=== PATIENT | male | born 1950 | race Caucasian/White ===

== ENCOUNTER 2021-09-13 15:25 | Outpatient (REF) | payer MEDICARE, SELFPAY ==
--- NOTE | ~2021-09-13 | XR_ITS ---
EXAMINATION: XR HIP, RIGHT CLINICAL INFORMATION: Pain COMPARISON: No prior studies available for comparison. TECHNIQUE: Two views of the right hip. FINDINGS: There is a radiolucent lesion in the right femoral neck measured approximately 4.4 cm, the lesion has nonaggressive features including well-defined sclerotic borders, central intramedullary, narrow zone of transition, similar lesion found in the proximal diaphysis measure 3.5 x 2.4 cm, adjacent heterogeneity of the cortex between the 2 lesions could be asymmetric bone demineralization, however cannot entirely rule out the possibility of pathologic process. There is also sclerotic lesion 1.3 cm. There are degenerative osteoarthritic changes of the hip joint. There is a 3 cm ossified structure protruding from the iliac bone could be osteochondroma. XR/XR hip RT min 2V IMPRESSION: Multiple bone lesions found in the right iliac bone, right femoral neck and proximal diaphysis as described above most of which has nonaggressive features, however there are indistinct radiolucency between the 2 femoral lesions are somewhat concerning, would recommend correlation with follow-up contrast enhanced MRI to rule out underlying more aggressive pathologic features. (Referring physician staff is being called, to be alerted of the above findings and recommendations.) SM
== END 2021-09-13 15:26 | disposition home or self-care (01) ==
LOC: HO.XRAY 15:25
PROVIDERS: PCP Family Medicine; Visit Provider Family Medicine
DX: M25.551 Pain in right hip (principal)
CPT/HCPCS: 73502

== ENCOUNTER 2021-09-22 15:52 | Outpatient (REF) | payer MEDICARE, SELFPAY ==
--- NOTE | ~2021-09-22 | MR_ITS ---
EXAMINATION: MR HIP WITHOUT AND WITH CONTRAST, RIGHT CLINICAL INFORMATION: 71-year-old male with remote history of prior hip surgery. Worsening right hip pain. COMPARISON: Radiographs of the hip from 09/13/2021. TECHNIQUE: MR imaging of the right hip was performed on a high-field 1.5 Nurys magnet using standard sequences without and with intravenous administration of 9 mL Gadavist. FINDINGS: There is thinning of articular cartilage of the superior femoral head and acetabulum. The signal heterogeneity within degenerated articular cartilage is most pronounced at the superolateral aspect of the acetabulum, and there is mild subchondral cystic change of the acetabulum. There are marginal osteophytes at the degenerated femoroacetabular joint. There is a tear in the base of the anterior acetabular labrum (sagittal images 9-10, series 5). Also, there is signal alteration of mucoid degeneration with partial thickness tear in the labrum at the superolateral acetabulum. Small paralabral cyst of the posterior superior acetabulum measures up to 0.7 cm maximum dimension (image 7, series 6; image 18, series 7). The ligamentum teres femoris is intact. There is subcortical cystic change of the medial femoral head in the region of the fovea capitis. There is somewhat horizontal orientation of predominantly sclerotic, hypointense signal abnormality in the lower intertrochanteric area of the proximal femur. This appears to represent an old healed osteotomy. Well-circumscribed foci of mixed signal intensity with sclerotic borders are present proximal and distal to this area of prior osteotomy. These have the appearance of chronic fibrocystic changes within the medullary cavity and they do not significantly enhance after contrast administration. These appear to represent chronic, benign lesions. Note that there are no remote comparison imaging exams. 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 No acute avulsion fracture. The iliopsoas has a normal insertion on the lesser trochanter. The gluteus minimus and medius tendons have intact insertions on the greater trochanter. No evidence of trochanteric bursitis. The visualized proximal hamstring tendons are intact. The degenerated lumbar spine is partially included in the [id number]. Sacrum and sacroiliac joints are unremarkable. The fat planes are maintained along the visualized course of each proximal sciatic nerve. No evidence of pelvic soft tissue mass, lymphadenopathy or free fluid. The urinary bladder and prostate gland are unremarkable. MR/MR hip RT wo/w con IMPRESSION: * Moderate osteoarthritis of the right hip. * The labrum of the right hip is degenerated and torn, and there is a small paralabral cyst of the posterosuperior acetabulum. * Findings consistent with old healed osteotomy of the proximal right femur, and there appear to be old fibrocystic changes within the medullary cavity the proximal femur. No suspicious bone lesion. 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 No acute avulsion fractures.
--- NOTE | ~2021-09-22 | XR_ITS ---
EXAMINATION: PRE-MRI ORBITS CLINICAL INFORMATION: Metal 20-30 years ago in orbits COMPARISON: None TECHNIQUE: 3 views of the orbits FINDINGS: No metallic foreign body. The orbits are normal no acute facial bone abnormality. Normal aeration of paranasal sinuses. XR/XR pre mri screening IMPRESSION: No radiopaque foreign body of orbits.
[2021-09-22 16:28] LABS: Anion Gap 16 (12-20); Blood Urea Nitrogen 17 mg/dL (9-16); Calcium 9.9 mg/dL (8.4-10.2); Carbon Dioxide 28 mmol/L (22-29); Chloride 98 mmol/L (96-108); Estimated Glomerular Filt Rate > 60; Glucose Random 98 mg/dL (60-115); Potassium 3.5 mmol/L (3.3-5.1); Sodium 138 mmol/L (135-145)
== END 2021-09-22 15:53 | disposition home or self-care (01) ==
LOC: HO.MRI 15:52
PROVIDERS: Visit Provider Family Medicine
DX: I10 Essential (primary) hypertension (principal); M25.551 Pain in right hip
CPT/HCPCS: 36415; 73723; 80048; A9585

== ENCOUNTER 2023-07-17 10:00 | Outpatient (RCR) | payer OTHER, SELFPAY ==
[2023-04-25 10:04] VITALS: BP 144/80; BP 152/80; BP 160/80; BMI 28.5
--- NOTE | 2023-04-25 11:12 | MHC.CR.ITI ---
[address] [phone] F: [phone] Please see additional notes from [address] [phone] F: [phone] Please see additional notes from [facility] Cardiac Rehab Initial Assessment/ITP Cardiac Rehab Initial Assessment/ITP Start: 04/23/23 14:33 Freq: Status: Active Protocol: Activity Type Activity Date Activity User E-sign Co-sign Detail Recorded Client Recorded Date Recorded By Document 04/25/23 10:04 ANIL [id number] 04/23/23 14:57 ANIL 04/25/23 10:04 Cardiac Rehab ITP Initial [Excercise] -Transfer Man Required No -Preferred Language Nepali -Number of sessions approved 36 -Diagnosis Coronary Stenting (PCI) Z98.61 -Other Diagnosis HTN, HYperlipidemia -Comments PMH of CAD S/P PCI to LAD. Admitted 01/19 with unstable Angina and had NOA to mid and proximal RCA. No cardiac symptoms at Cardiology follow up . ECHO showed normal LV funsction.. He is monitoring BP at home. [Functional Assessment] -METS Achieved 3.54 -Resting HR 78 -Resting BP 152/80 -Resting SpO2 97 -Exercise HR 102 -Exercise BP 144/80 -Exercise SpO2 96 -RPE 12 -Dyspnea No -ECG Summary SR -Comments No CP, SOB [Pre Rehab] -Pre Rehab Home Exercise Yes -Mode Walk -Exercise Minutes/Day Varies -Exercise Days/Week 7 -Intensity Low -Comments Has been walking 3-4 miles a day per MD note and cares for disabled spouse . He expresses he has not been walking as much due to fatigue after COVID, Stent and recent PCI. Has limited left arm ROM. Has a lot of physical activity due to care he provides for . -Risk Stratification: Low Risk Uncomplicated Participants DC; CABG; angioplasty; atherectomy,No significant left ventricular dysfunction (EF > = 30%) -Assistive Devices None -Comments Low Risk-No CV symptoms post stent [Exercise Plan] [Intervention] -Exercise Prescription NuStep, Recumbent Bike, Recumbent Elliptical, Treadmill,UBE, Upright Bike, Weights -Duration Intensity 36 Sessions -Frequency 2-3x/week -Angina with Exercise No [Exercise Education] -Exercise Education Exercise orientation, Exercise safety ,Home exercise, RPE,Self pulse checking,Signs and symptoms, Warmup/cooldown -Date Completed 04/25/23 -Initials CD -Education Summary The above were discussed by RN and Reinforced by Character Impersonator [Exercise Goals] -Exercise Most Days of the Week Yes -Exercise 30-45 mins/day Yes -Target HR Range +20 - +30 beats above resting -Target RPE range 11-13 -Increase METS next 30 days 0.5-1.0 METS Every two weeks -METs goal by Discharge 4 METS -Comments Walks 3-4 miles at home previously(per February, MD note). Wishes to increase exercise tolerance, and have understanding of safe exercise guidelines. Has not done as much walking due to caregiver fatigue [Nutrition] [Hyperlipidemia] -Hyperlipidemia Yes -Are lab results available Yes -Lipid Draw Date 02/19/23 -Total Cholesterol 265 -LDL 96 -HDL 45 -Tryglycerides 621 [Diabetes] -Diabetes No -Are lab results available Yes -Fasting Glucose 107 -Date 01/19/23 -HbA1C 5.50 -Monitors Glucose No [Weight Management] -Height 5 ft 10.08 in -Weight 90.5 kg -BMI 28.54 -Recommended Diet Low Fat,Salt -Comments Lipids discussed; he will discuss with MD. [Drug/Alchohol Use] -Drug/Alcohol Use Yes -Type Beer/Wine -Amount 1-2 per week [Nutritional Screen (Rate Your Plate)] -Score 52 -Interpretation of Score Some ways to improve -Comments Plan for lean meats, smaller portion, more fruits and vegetables, and less eggs. [Nutrition Plan] [Intervention] -Referral(s) Nutrition Brochures [Nutrition Education] -Nutrition Education Hydration, Nutrition -Date Completed 04/25/23 -Initials CD -Education Summary States understanding of diet modification, htydration [Nutrition Goals] -Goals BMI < 25, Fasting BG 80- 120 mg/dL,HDL > 40,LDL < 70, Total CHOL < 200 -Weight goal 185 -Comments Less Reflux with weight at 185 [Psycho/Social] -Stage of Change Action -Learning Barriers None -Occupation Retired -PHQ9 Score 3 -Interpretation of Score Low -Plan of Action/Follow-up Support stress reduction -Comments Caretakes for spouse. 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 Children supportive. 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 Son assists with his 's care , and spouse has a positive attitude. Has four children who are supportive. [Psycho/Social Plan] [Intervention] -Referral(s) No consult needed [Psycho/Social Education] -Psycho/Social Education Advanced directives, Coping techniques, Depression and CAD,Positive support system, Relaxation Techniques, Reviewed PHQ9 Score w/pt, Signs and symptoms of CAD ,Stress management -Date Completed 04/25/23 -Initials CD -Education Summary Watch a movie. PHQ9 discussed. States he does not have a lot of down time. S/S to report, general guidelines discussed. Children supportive and live in the area. [Psycho/Social Goals] -Goals Manage/reduce stress -Comments Takes care of spouse. Son lives at home-s /p head injury. Son has 20% vision. [Other Core Comp] [Risk Factors] -Risk Factors Dyslipidemia, Hypertension -Comments: MD note indicates Terry is tolerating Rosuvastatin. Monitors BP at home and understands BP goal. [Hypertension] -Hypertention Yes -Resting BP: 160/80 [Tobacco Use] -Patient Tobacco Use Status Never used Tobacco [Heart Failure] -Heart Failure No [Other Core Comp Plan] [Intervention] -Referral(s) Recognizing Stressors,Self Monitoring BP [Other Core Comp Education] -Other Core Comp Education Medication compliance,Risk factor modifications, Understanding hypertension -Date Completed 04/25/23 -Initials CD -Education Summary States understanding of RF modification, measures BP at home. No issue with medications. He will follow Lipids with MD. Lipids reviewed. [Other Core Comp Goals] -Goals Manage risk factors, Medication compliance, Resting BP < 130/80 -Comments MD wishes a call if BP consistently > 130's. Terry measures BP at home also. [Medication Plan] [Intervention] -Medications ASA 81 MG ER Daily Metoprolol 50MG ER Daily Nitro-0.4MG every 5 min. PRN chest pain Plavix-75MG Daily Rosuvastatin 20MG Daily Ocuvite Daily [id number] Daily B3 Daily -Compliance Patient reports compliance w/ prescribed meds [Medication Education] -Education Importance of medication compliance, Medication purpose, Medication schedule, Medication side effects -Date Completed 04/25/23 -Initials CD -Education Summary Terry will discuss joint pain with MD. States discomfort is milder with Rosuvastatin than previous med(unsure of name). He will also bring in home BP measurements weekly. [Medication Goals] -Goals Adherence to medication compliance -Comments No issues [Treatment Times] -Rehab Services with ECG Monitor -Time 10:15 -End Time 11:15 -Visit Duration 60
[2023-05-20 14:56] VITALS: BP 116/76; BMI 28.5
--- NOTE | 2023-05-20 15:15 | MHC.CR.ITR ---
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 Admitted 01/19 with unstable Angina and had NOA to mid and proximal RCA. No cardiac symptoms at Cardiology follow up . ECHO showed normal LV function.. He is monitoring BP at home. 30 DAY ASSESSMENT: Pt DOING WELL AND TOLERATING REHAB WITHOUT CV SYMPTOMS. HE IS PROGRESSING , TOLERATING INCREASED TIME AND RESISTANCE RESULTING IN INCREASE MET ACHIEVED. MAX MET ACHIEVED SO FAR IS 6 METS. [Functional Assessment] -ECG Summary SR NO ECTOPY NOTED LAST SESSION -Home-Based Rehab Pt approved for home-based exercise -Comments ENCOURAGE WALKING ON OFF REHAB DAYS -Fall Risk No [Exercise Plan] [Intervention] -Exercise Prescription NuStep, Recumbent Bike, Recumbent Elliptical, Treadmill,UBE, Upright Bike, Weights -Duration Intensity 36 Sessions -Exercise Minutes/Day 45 -Exercise Days/Week 3 -Angina with Exercise No -Peak METs 6.0 [Home Exercise] -Mode WALK -Frequency 5DAYS A WEEK -Intensity LIGHT [Exercise Education] -Exercise Education Exercise orientation, Exercise safety ,Home exercise, RPE,Self pulse checking,Signs and symptoms, Warmup/cooldown -Date Completed 04/25/23 -Initials CD -Education Summary The above were discussed by RN and Reinforced by Security Screener 05/20/2023: EDUCATION ON WARM UP AND COOL DOWN, AND SELF PULSE CHECKING. Pt IS AWARE OF PROGRESSION OF EX AND DOING HIS PART TO WORK HARD WITHIN HIS TARGET HR. [Exercise Goals] -Exercise Most Days of the Week Yes -Exercise 30-45 mins/day Yes -Target HR Range +20 - +30 beats above resting -Target RPE range 11-13 -Increase METS next 30 days 0.5-1.0 METS Every two weeks -METs goal by Discharge 4 METS -Comments Walks 3-4 miles at home previously(per February, MD note). Wishes to increase exercise tolerance, and have understanding of safe exercise guidelines. Has not done as much walking due to caregiver fatigue 05/20/23: Pt PUSHING AND PROGRESSING IN CR SESSIONS. HAS ALREADY ACHIEVED MAX MET OF 6. [Nutrition] [Hyperlipidemia] -Are lab results available Yes -Hyperlipidemia Yes -Comments NO NEW LABS OF 05/20/23 [Diabetes] -Diabetes No -Fasting Glucose 107 -Date 01/19/23 -HbA1C 5.50 [Weight Management] -Weight 90.5 kg -BMI 28.54 -Comments Lipids discussed; he will discuss with MD. [Drug/Alchohol Use] -Drug/Alcohol Use Yes [Nutrition Plan] [Intervention] -Attended Nutrition Brochures [Nutrition Education] -Nutrition Education Hydration, Nutrition -Date Completed 04/25/23 -Initials CD -Education Summary States understanding of diet modification, hydration 05/20/23: CONTINUE TO ENCOURAGE FLUID INTAKE AND HYDRATION ESPECIALLY WITH EX. 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 Children supportive. 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 PHQ9 discussed. States he does not have a lot of down time. S/S to report, general guidelines discussed. Children supportive and live in the area. 05/20/23; DOES NOT REPORT HAVING ANY S&S OF DEPRESSION OR STRESS. [Psycho/Social Goals] -Goals Manage/reduce stress -Comments Takes care of spouse. Son lives at home-s /p head injury. Son has 20% vision. [Other Core Comp] [Hypertension] -Hypertention Yes -Resting BP: 116/76 -Medication Changes No [Tobacco Use] -Change in Use No [Heart Failure] -Heart Failure No -Dyspnea at Rest No -Dyspnea with Exercise No [Other Core Comp Plan] [Intervention] -Attended Recognizing Stressors,Self Monitoring BP [Other Core Comp Education] -Other Core Comp Education Medication compliance,Risk factor modifications, Understanding hypertension -Date Completed 04/25/23 -Initials CD -Education Summary States understanding of RF modification, measures BP at home. No issue with medications. He will follow Lipids with MD. Lipids reviewed. [Other Core Comp Goals] -Goals Manage risk factors, Medication compliance, Resting BP < 130/80 -Comments MD wishes a call if BP consistently > 130's. Terry measures BP at home also. 05/20/23: RESTING BP 116. 76 LAST SESSION . OVERALL ALL BP'S HAEV BEEN TRENDING DOWN. WILL CONTINUE TO MONITOR [Medication Plan] [Intervention] -Medications ASA 81 MG ER Daily Metoprolol 50MG ER Daily Nitro-0.4MG every 5 min. PRN chest pain Plavix-75MG Daily Rosuvastatin 20MG Daily Ocuvite Daily [id number] Daily B3 Daily -Compliance Patient reports compliance w/ prescribed meds [Medication Education] -Education Importance of medication compliance, Medication purpose, Medication schedule, Medication side effects -Date Completed 04/25/23 -Initials CD -Education Summary Terry will discuss joint pain with MD. States discomfort is milder with Rosuvastatin than previous med(unsure of name). He will also bring in home BP measurements weekly. cONITINUED MED COMPLIANCE REPORTED. [Medication Goals] -Goals Adherence to medication compliance -Comments No issues
[2023-06-18 07:50] VITALS: BP 116/76; BMI 28.5
--- NOTE | 2023-06-18 08:06 | MHC.CR.ITR ---
[address] [phone] F: [phone] Please see additional notes from [facility] Reassessment/ITP Cardiac Rehab Reassessment/ITP Start: 04/23/23 14:33 Freq: Status: Active Protocol: Activity Type Activity Date Activity User E-sign Co-sign Detail Recorded Client Recorded Date Recorded By Document 06/18/23 07:50 ANIL [id number] 06/18/23 08:06 ANIL 06/18/23 07:50 Cardiac Rehab Reassessment/ITP [Exercise] -Telecommunications Consultant Required No -Preferred Language Urdu -Progress Note Type 60-Day Note -Total Sessions Attended 13 -Comments PMH of CAD S/P PCI to LAD. Admitted 01/19 with unstable Angina and had NOA to mid and proximal RCA. No cardiac symptoms at Cardiology follow up . ECHO showed normal LV function.. He is monitoring BP at home. 30 DAY ASSESSMENT: Pt DOING WELL AND TOLERATING REHAB WITHOUT CV SYMPTOMS. HE IS PROGRESSING , TOLERATING INCREASED TIME AND RESISTANCE RESULTING IN INCREASE MET ACHIEVED. MAX MET ACHIEVED SO FAR IS 6 METS. 60 Day-Terry has been doing well in Cardiac Rehab. He has missed the last few sessions due to spouse's medical needs, and trying to obtain increased assistance at home. Tel. SR, VSS, no CV symptoms. No change in medications. He plans to discuss his Lipid Profile and Statins with MD. [Functional Assessment] -ECG Summary SR NO ECTOPY NOTED LAST SESSION -Home-Based Rehab Pt approved for home-based exercise -Comments ENCOURAGE WALKING ON OFF REHAB DAYS -Fall Risk No [Exercise Plan] [Intervention] -Exercise Prescription NuStep, Recumbent Bike, Recumbent Elliptical, Treadmill,UBE, Upright Bike, Weights -Duration Intensity 36 Sessions -Exercise Minutes/Day 51 -Exercise Days/Week 3 -Angina with Exercise No -Peak METs 6.0 [Home Exercise] -Mode WALK -Frequency 5DAYS A WEEK -Intensity LIGHT [Exercise Education] -Exercise Education Exercise orientation, Exercise safety ,Home exercise, RPE,Self pulse checking,Signs and symptoms, Warmup/cooldown -Date Completed 04/25/23 -Initials CD -Education Summary The above were discussed by RN and Reinforced by Duct Maker 05/20/2023: EDUCATION ON WARM UP AND COOL DOWN, AND SELF PULSE CHECKING. Pt IS AWARE OF PROGRESSION OF EX AND DOING HIS PART TO WORK HARD WITHIN HIS TARGET HR. 06/18/23-Terry increases his exercise time and intensity without complaints. He does have limited ROM in his left shoulder, and has joint pain in hands and feet. He plans to discuss Statin with MD. He was encouraged to continue taking medication until discussed with MD. [Exercise Goals] -Exercise Most Days of the Week Yes -Exercise 30-45 mins/day Yes -Target HR Range +20 - +30 beats above resting -Target RPE range 11-13 -Increase METS next 30 days 0.5-1.0 METS Every two weeks -METs goal by Discharge 4 METS -Comments Walks 3-4 miles at home previously(per February, MD note). Wishes to increase exercise tolerance, and have understanding of safe exercise guidelines. Has not done as much walking due to caregiver fatigue 05/20/23: Pt PUSHING AND PROGRESSING IN CR SESSIONS. HAS ALREADY ACHIEVED MAX MET OF 6. 06/17/23=[place] has missed the last few sessions due to appointments for his . He continues to exercise at 5- 6METS. 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 They are, however, also seeking out additional assistance as needed. [Nutrition] [Hyperlipidemia] -Are lab results available Yes -Hyperlipidemia Yes -Comments NO NEW LABS OF 05/20/23 [Diabetes] -Diabetes No -Fasting Glucose 107 -Date 01/19/23 -HbA1C 5.50 [Weight Management] -Weight 90.5 kg -BMI 28.54 -Comments Lipids discussed; he will discuss with MD. 06/18/23-Last weight was 91.4 KG. [Drug/Alchohol Use] -Drug/Alcohol Use Yes [Nutrition Plan] [Intervention] -Attended Nutrition Brochures [Nutrition Education] -Nutrition Education Hydration, Nutrition -Date Completed 04/25/23 -Initials CD -Education Summary States understanding of diet modification, hydration 05/20/23: CONTINUE TO ENCOURAGE FLUID INTAKE AND HYDRATION ESPECIALLY WITH EX. 06/18/23-Terry states safe exercise guidelines and adjusts exercises if he has discomfort with shoulder, joints. He does not wish to pursue surgery for his shoulder at this time. [Nutrition Goals] -Goals BMI < 25, Fasting BG 80- 120 mg/dL,HDL > 40,LDL < 70, Total CHOL < 200 -Weight goal 185 -Comments Less Reflux with weight at 185 Last weight 91. 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 Children supportive. 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 PHQ9 discussed. States he does not have a lot of down time. S/S to report, general guidelines discussed. Children supportive and live in the area. 05/20/23; DOES NOT REPORT HAVING ANY S&S OF DEPRESSION OR STRESS. [Psycho/Social Goals] -Goals Manage/reduce stress -Comments Takes care of spouse. Son lives at home-s /p head injury. Son has 20% vision. [Other Core Comp] [Hypertension] -Hypertention Yes -Resting BP: 116/76 -Medication Changes No -Comments Resting BP-116/ 70 at last session with a BP of 132/72 with exercise. [Tobacco Use] -Change in Use No [Heart Failure] -Heart Failure No -Dyspnea at Rest No -Dyspnea with Exercise No [Other Core Comp Plan] [Intervention] -Attended Recognizing Stressors,Self Monitoring BP [Other Core Comp Education] -Other Core Comp Education Medication compliance,Risk factor modifications, Understanding hypertension -Date Completed 04/25/23 -Initials CD -Education Summary States understanding of RF modification, measures BP at home. No issue with medications. He will follow Lipids with . Lipids reviewed. [Other Core Comp Goals] -Goals Manage risk factors, Medication compliance, Resting BP < 130/80 -Comments MD wishes a call if BP consistently > 130's. Terry measures BP at home also. 05/20/23: RESTING BP 116. 76 LAST SESSION . OVERALL ALL BP'S HAEV BEEN TRENDING DOWN. WILL CONTINUE TO MONITOR 06/18/23-As above. VSS. Terry checks his BP at home. [Medication Plan] [Intervention] -Medications ASA 81 MG ER Daily Metoprolol 50MG ER Daily Nitro-0.4MG every 5 min. PRN chest pain Plavix-75MG Daily Rosuvastatin 20MG Daily Ocuvite Daily [id number] Daily B3 Daily -Compliance Patient reports compliance w/ prescribed meds [Medication Education] -Education Importance of medication compliance, Medication purpose, Medication schedule, Medication side effects -Date Completed 04/25/23 -Initials CD -Education Summary Terry will discuss joint pain with MD. States discomfort is milder with Rosuvastatin than previous med(unsure of name). He will also bring in home BP measurements weekly. CONITINUED MED COMPLIANCE REPORTED. [Medication Goals] -Goals Adherence to medication compliance -Comments No issues 06/18/23-No changes in medication at this time. He has no difficulty with meds.
[2023-07-17 07:28] VITALS: BP 116/76; BMI 28.5
--- NOTE | 2023-07-17 07:42 | MHC.CR.ITR ---
[address] [phone] F: [phone] Please see additional notes from [facility] Reassessment/ITP Cardiac Rehab Reassessment/ITP Start: 04/23/23 14:33 Freq: Status: Active Protocol: Activity Type Activity Date Activity User E-sign Co-sign Detail Recorded Client Recorded Date Recorded By Document 07/17/23 07:28 RJ [id number] 07/17/23 07:41 RJ 07/17/23 07:28 Cardiac Rehab Reassessment/ITP [Exercise] -Slimer Required No -Preferred Language Malaysian -Progress Note Type 90-Day Note -Total Sessions Attended 13 -Comments PMH of CAD S/P PCI to LAD. Admitted 01/19 with unstable Angina and had NOA to mid and proximal RCA. No cardiac symptoms at Cardiology follow up . ECHO showed normal LV function.. He is monitoring BP at home. 30 DAY ASSESSMENT: Pt DOING WELL AND TOLERATING REHAB WITHOUT CV SYMPTOMS. HE IS PROGRESSING , TOLERATING INCREASED TIME AND RESISTANCE RESULTING IN INCREASE MET ACHIEVED. MAX MET ACHIEVED SO FAR IS 6 METS. 60 Day-Terry has been doing well in Cardiac Rehab. He has missed the last few sessions due to spouse's medical needs, and trying to obtain increased assistance at home. Tel. SR, VSS, no CV symptoms. No change in medications. He plans to discuss his Lipid Profile and Statins with MD. 90 Day Reassessment: Terry has continued to make progress despite his inconsistent attendance which is due to his need for caring for his bed bound . Terry tries to attend regularly but sometimes has to prioritize hsi 's care . He has however progressed to the point of achieving a 5.0 - 6.0 MET with ex and typically is in SR or ST. [Functional Assessment] -ECG Summary SR/ST NO ECTOPY NOTED LAST SESSION -Home-Based Rehab Pt approved for home-based exercise -Comments ENCOURAGE WALKING ON OFF REHAB DAYS -Fall Risk No [Exercise Plan] [Intervention] -Exercise Prescription NuStep, Recumbent Bike, Recumbent Elliptical, Treadmill,UBE, Upright Bike, Weights -Duration Intensity 36 Sessions -Exercise Minutes/Day 51 -Exercise Days/Week 3 -Angina with Exercise No -Peak METs 6.0 [Home Exercise] -Mode WALK -Frequency 5DAYS A WEEK -Intensity LIGHT [Exercise Education] -Exercise Education Exercise orientation, Exercise safety ,Home exercise, RPE,Self pulse checking,Signs and symptoms, Warmup/cooldown -Date Completed 04/25/23 -Initials CD -Education Summary The above were discussed by RN and Reinforced by Patent Drafter 05/20/2023: EDUCATION ON WARM UP AND COOL DOWN, AND SELF PULSE CHECKING. Pt IS AWARE OF PROGRESSION OF EX AND DOING HIS PART TO WORK HARD WITHIN HIS TARGET HR. 06/18/23-Terry increases his exercise time and intensity without complaints. He does have limited ROM in his left shoulder, and has joint pain in hands and feet. He plans to discuss Statin with MD. He was encouraged to continue taking medication until discussed with MD. 07/17/2023 90 DAY Assessment: Completed. [Exercise Goals] -Exercise Most Days of the Week Yes -Exercise 30-45 mins/day Yes -Target HR Range +20 - +30 beats above resting -Target RPE range 11-13 -Increase METS next 30 days 0.5-1.0 METS Every two weeks -METs goal by Discharge 4 METS -Comments Walks 3-4 miles at home previously(per February, MD note). Wishes to increase exercise tolerance, and have understanding of safe exercise guidelines. Has not done as much walking due to caregiver fatigue 05/20/23: Pt PUSHING AND PROGRESSING IN CR SESSIONS. HAS ALREADY ACHIEVED MAX MET OF 6. 06/17/23=[place] has missed the last few sessions due to appointments for his . He continues to exercise at 5- 6METS. 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 They are, however, also seeking out additional assistance as needed. 07/17/2023: Maintaining METs of 5-6 with ex with no CV symptoms. Pt has surpassed initial goal. He understands the Target RPE and Target HR range. [Nutrition] [Hyperlipidemia] -Are lab results available Yes -Hyperlipidemia Yes -Medication Changes No -Comments NO NEW LABS OF 05/20/23 No new labs available at this time. 04/2023 [Diabetes] -Diabetes No -Fasting Glucose 107 -Date 01/19/23 -HbA1C 5.50 -Comments n/a [Weight Management] -Weight 91.4 kg -BMI 28.54 -Comments Lipids discussed; he will discuss with MD. 06/18/23-Last weight was 91.4 KG. Same wt recorded this date: 2022 [Drug/Alchohol Use] -Drug/Alcohol Use Yes [Nutrition Plan] [Intervention] -Attended Nutrition Brochures [Nutrition Education] -Nutrition Education Hydration, Nutrition, Reading food labels -Date Completed 04/25/23 -Initials CD -Education Summary States understanding of diet modification, hydration 05/20/23: CONTINUE TO ENCOURAGE FLUID INTAKE AND HYDRATION ESPECIALLY WITH EX. 06/18/23-Terry states safe exercise guidelines and adjusts exercises if he has discomfort with shoulder, joints. He does not wish to pursue surgery for his shoulder at this time. 07/17/2023: Continues to prioritize hydration. nutrition and reading food labels. [Nutrition Goals] -Goals BMI < 25, Fasting BG 80- 120 mg/dL,HDL > 40,LDL < 70, Total CHOL < 200 -Weight goal 185 -Comments Less Reflux with weight at 185 Last weight 91. 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 Children supportive. 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 He does feel the stress of it, but seems to have good coping. Discussion about finding care for if he is feeling burned out was discussed. His children/son helps, but doesn't do personal care. 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 [Psycho/Social Plan] [Intervention] -Attended No consult needed [Psycho/Social Education] -Psycho/Social Education Advanced directives, Coping techniques, Depression and CAD,Positive support system, Relaxation Techniques, Reviewed PHQ9 Score w/pt, Signs and symptoms of CAD ,Stress management -Date Completed 04/25/23 -Initials CD -Education Summary Watch a movie. PHQ9 discussed. States he does not have a lot of down time. S/S to report, general guidelines discussed. Children supportive and live in the area. 05/20/23; DOES NOT REPORT HAVING ANY S&S OF DEPRESSION OR STRESS. 07/17/2023: As stated above. Care giving burned is risk factor for depression, but he has supportive family. [Psycho/Social Goals] -Goals Manage/reduce stress -Comments Takes care of spouse. Son lives at home-s /p head injury. Son has 20% vision. 07/17/23 No changes. [Other Core Comp] [Hypertension] -Hypertention Yes -Resting BP: 116/76 -Medication Changes No -Comments Resting BP-116/ 70 at last session with a BP of 132/72 with exercise. Resting HR last visit was 124/ 60 [Tobacco Use] -Change in Use No [Heart Failure] -Heart Failure No -Dyspnea at Rest No -Dyspnea with Exercise No [Other Core Comp Plan] [Intervention] -Attended Recognizing Stressors,Self Monitoring BP [Other Core Comp Education] -Other Core Comp Education Medication compliance,Risk factor modifications, Understanding hypertension -Date Completed 04/25/23 -Initials CD -Education Summary States understanding of RF modification, measures BP at home. No issue with medications. He will follow Lipids with MD. Lipids reviewed. 90 Day: No changes: continues with above. [Other Core Comp Goals] -Goals Manage risk factors, Medication compliance, Resting BP < 130/80 -Comments MD wishes a call if BP consistently > 130's. Terry measures BP at home also. 05/20/23: RESTING BP 116. 76 LAST SESSION . OVERALL ALL BP'S HAEV BEEN TRENDING DOWN. WILL CONTINUE TO MONITOR 06/18/23-As above. VSS. Alberty checks his BP at home. [Medication Plan] [Intervention] -Medications ASA 81 MG ER Daily Metoprolol 50MG ER Daily Nitro-0.4MG every 5 min. PRN chest pain Plavix-75MG Daily Rosuvastatin 20MG Daily Ocuvite Daily [id number] Daily B3 Daily -Compliance Patient reports compliance w/ prescribed meds [Medication Education] -Education Importance of medication compliance, Medication purpose, Medication schedule, Medication side effects -Date Completed 04/25/23 -Initials CD -Education Summary Terry will discuss joint pain with MD. States discomfort is milder with Rosuvastatin than previous med(unsure of name). He will also bring in home BP measurements weekly. CONITINUED MED COMPLIANCE REPORTED. [Medication Goals] -Goals Adherence to medication compliance -Comments No issues 06/18/23-No changes in medication at this time. He has no difficulty with meds. 07/17/2023: Continued Compliance.
[2023-08-13 15:17] VITALS: BP 116/76; BMI 28.5
--- NOTE | 2023-08-13 15:39 | MHC.CR.ITR ---
[address] [phone] F: [phone] Please see additional notes from [facility] Cardiac Rehab Reassessment/ITP Cardiac Rehab Reassessment/ITP Start: 04/23/23 14:33 Freq: Status: Active Protocol: Activity Type Activity Date Activity User E-sign Co-sign Detail Recorded Client Recorded Date Recorded By Document 08/13/23 15:17 ANIL [id number] 08/13/23 15:38 ANIL 08/13/23 15:17 Cardiac Rehab Reassessment/ITP [Exercise] -Glass Smoother Required No -Preferred Language Swedish -Progress Note Type 120-Day Note -Total Sessions Attended 22 -Comments PMH of CAD S/P PCI to LAD. Admitted 01/19 with unstable Angina and had NOA to mid and proximal RCA. No cardiac symptoms at Cardiology follow up . ECHO showed normal LV function.. He is monitoring BP at home. 30 DAY ASSESSMENT: Pt DOING WELL AND TOLERATING REHAB WITHOUT CV SYMPTOMS. HE IS PROGRESSING , TOLERATING INCREASED TIME AND RESISTANCE RESULTING IN INCREASE MET ACHIEVED. MAX MET ACHIEVED SO FAR IS 6 METS. 60 Day-Terry has been doing well in Cardiac Rehab. He has missed the last few sessions due to spouse's medical needs, and trying to obtain increased assistance at home. Tel. SR, VSS, no CV symptoms. No change in medications. He plans to discuss his Lipid Profile and Statins with MD. 90 Day Reassessment: Terry has continued to make progress despite his inconsistent attendance which is due to his need for caring for his bed bound . Terry tries to attend regularly but sometimes has to prioritize hsi 's care . He has however progressed to the point of achieving a 5.0 - 6.0 MET with ex and typically is in SR or ST. 120 Day-08/13/23 -Terry has been out intermittently due to COVID and now has a bad cold . States he was recently in bed three days. He continues to work in a 5-6 MET range for 50 minutes. VSS . No further palpitations. No ectopy noted . Tel. SR. He attends the educational sessions. [Functional Assessment] -ECG Summary SR NO ECTOPY NOTED LAST SESSION -Home-Based Rehab Pt approved for home-based exercise -Comments ENCOURAGE WALKING ON OFF REHAB DAYS 120 Day: -Terry walks 45 minutes daily with his son. -Fall Risk No [Exercise Plan] [Intervention] -Exercise Prescription NuStep, Recumbent Bike, Recumbent Elliptical, Treadmill,UBE, Upright Bike, Weights -Duration Intensity 36 Sessions -Exercise Minutes/Day 51 -Exercise Days/Week 3 -Angina with Exercise No -Peak METs 6.0 [Home Exercise] -Mode WALK -Frequency 5DAYS A WEEK -Intensity LIGHT -Comments 08/13/23-Walks 45 minutes a day with his son. [Exercise Education] -Exercise Education Exercise orientation, Exercise safety ,Home exercise, RPE,Self pulse checking,Signs and symptoms, Warmup/cooldown -Date Completed 04/25/23 -Initials CD -Education Summary The above were discussed by RN and Reinforced by Medical Facilities Section Director 05/20/2023: EDUCATION ON WARM UP AND COOL DOWN, AND SELF PULSE CHECKING. Pt IS AWARE OF PROGRESSION OF EX AND DOING HIS PART TO WORK HARD WITHIN HIS TARGET HR. 06/18/23-Terry increases his exercise time and intensity without complaints. He does have limited ROM in his left shoulder, and has joint pain in hands and feet. He plans to discuss Statin with MD. He was encouraged to continue taking medication until discussed with MD. 07/17/2023 90 DAY Assessment: Completed. 08/13/23-No changes from above. Expresses he has difficulty making appointments due to caring for his , insurance issues. [Exercise Goals] -Exercise Most Days of the Week Yes -Exercise 30-45 mins/day Yes -Target HR Range +20 - +30 beats above resting -Target RPE range 11-13 -Increase METS next 30 days 0.5-1.0 METS Every two weeks -METs goal by Discharge 6 METS -Comments Walks 3-4 miles at home previously(per February, MD note). Wishes to increase exercise tolerance, and have understanding of safe exercise guidelines. Has not done as much walking due to caregiver fatigue 05/20/23: Pt PUSHING AND PROGRESSING IN CR SESSIONS. HAS ALREADY ACHIEVED MAX MET OF 6. 06/17/23-Terry has missed the last few sessions due to appointments for his . He continues to exercise at 5- 6METS. 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 They are, however, also seeking out additional assistance as needed. 07/17/2023: Maintaining METs of 5-6 with ex with no CV symptoms. Pt has surpassed initial goal. He understands the Target RPE and Target HR range. 08/13/23-Will change goal to consistently performing 6 METS and include weights as he provides physical care for his . [Nutrition] [Hyperlipidemia] -Are lab results available Yes -Hyperlipidemia Yes -Medication Changes No -Comments NO NEW LABS OF 05/20/23 No new labs available at this time. 04/2023 [Diabetes] -Diabetes No -Fasting Glucose 107 -Date 01/19/23 -HbA1C 5.50 -Comments n/a [Weight Management] -Weight 91.4 kg -BMI 28.54 -Comments Lipids discussed; he will discuss with MD. 06/18/23-Last weight was 91.4 KG. Same wt recorded this date: 202208/13/23-Last weight 90.5 KG. Weight goal is 185 pounds. [Drug/Alchohol Use] -Drug/Alcohol Use Yes [Nutrition Plan] [Intervention] -Attended Nutrition Brochures [Nutrition Education] -Nutrition Education Hydration, Nutrition, Reading food labels -Date Completed 04/25/23 -Initials CD -Education Summary States understanding of diet modification, hydration 05/20/23: CONTINUE TO ENCOURAGE FLUID INTAKE AND HYDRATION ESPECIALLY WITH EX. 06/18/23-Terry states safe exercise guidelines and adjusts exercises if he has discomfort with shoulder, joints. He does not wish to pursue surgery for his shoulder at this time. 07/17/2023: Continues to prioritize hydration. nutrition and reading food labels. 08/13/23-Terry follows labs with his MD and tries to adjust diet as needed. [Nutrition Goals] -Goals BMI < 25, Fasting BG 80- 120 mg/dL,HDL > 40,LDL < 70, Total CHOL < 200 -Weight goal 185 -Comments Less Reflux with weight at 185 Last weight 91. 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 Children supportive. 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 He does feel the stress of it, but seems to have good coping. Discussion about finding care for if he is feeling burned out was discussed. His children/son helps, but doesn't do personal care. 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 08/13/23-Terry has intermittently been out due to COVID, resp. issues. He hopes to be back next week. He had expressed he made need assistance at home but tries to stay healthy so that he and son can provide care for his spouse. [Psycho/Social Plan] [Intervention] -Attended No consult needed [Psycho/Social Education] -Psycho/Social Education Advanced directives, Coping techniques, Depression and CAD,Positive support system, Relaxation Techniques, Reviewed PHQ9 Score w/pt, Signs and symptoms of CAD ,Stress management -Date Completed 04/25/23 -Initials CD -Education Summary Watch a movie. PHQ9 discussed. States he does not have a lot of down time. S/S to report, general guidelines discussed. Children supportive and live in the area. 05/20/23; DOES NOT REPORT HAVING ANY S&S OF DEPRESSION OR STRESS. 07/17/2023: As stated above. Care giving burned is risk factor for depression, but he has supportive family. 08/13/23-No change. Will continue to discuss if he has any further needs at home. [Psycho/Social Goals] -Goals Manage/reduce stress -Comments Takes care of spouse. Son lives at home-s /p head injury. Son has 20% vision. 07/17/23 No changes. 08/13/23-No change. States son helps with laundry, other chores. He walks with son daily. [Other Core Comp] [Hypertension] -Hypertention Yes -Resting BP: 116/76 -Medication Changes No -Comments Resting BP-116/ 70 at last session with a BP of 132/72 with exercise. Resting BP last visit was 124/ 60 08/13/23-Resting BP 102/50 last session() [Tobacco Use] -Change in Use No [Heart Failure] -Heart Failure No -Dyspnea at Rest No -Dyspnea with Exercise No [Other Core Comp Plan] [Intervention] -Attended Recognizing Stressors,Self Monitoring BP [Other Core Comp Education] -Other Core Comp Education Medication compliance,Risk factor modifications, Understanding hypertension -Date Completed 04/25/23 -Initials CD -Education Summary States understanding of RF modification, measures BP at home. No issue with medications. He will follow Lipids with MD. Lipids reviewed. Day: No changes: continues with above. 08/13/23-No changes. He states understanding of risk factors and plan for modifications, continued discussions with MD regarding Lipid Profile and Statin medication. He monitors BP at home. [Other Core Comp Goals] -Goals Manage risk factors, Medication compliance, Resting BP < 130/80 -Comments MD wishes a call if BP consistently > 130's. Terry measures BP at home also. 05/20/23: RESTING BP 116. 76 LAST SESSION . OVERALL ALL BP'S HAEV BEEN TRENDING DOWN. WILL CONTINUE TO MONITOR 06/18/23-As above. VSS. Terry checks his BP at home. 08/13/23-VSS. No issues with medication compliance. Resting BP <130 /80. [Medication Plan] [Intervention] -Medications ASA 81 MG ER Daily Metoprolol 50MG ER Daily Nitro-0.4MG every 5 min. PRN chest pain Plavix-75MG Daily Rosuvastatin 20MG Daily Ocuvite Daily [id number] Daily B3 Daily -Compliance Patient reports compliance w/ prescribed meds [Medication Education] -Education Importance of medication compliance, Medication purpose, Medication schedule, Medication side effects -Date Completed 04/25/23 -Initials CD -Education Summary Terry will discuss joint pain with MD. States discomfort is milder with Rosuvastatin than previous med(unsure of name). He will also bring in home BP measurements weekly. CONITINUED MED COMPLIANCE REPORTED. 08/13/23-No issues. Last session was due to the worst cold that he has had . Previously he had COVID. [Medication Goals] -Goals Adherence to medication compliance -Comments No issues 06/18/23-No changes in medication at this time. He has no difficulty with meds. 07/17/2023: Continued Compliance. 08/13/23- Continued compliance
[2023-09-12 09:47] VITALS: BP 116/76; BP 144/80; BP 152/80; BMI 28.5
--- NOTE | 2023-09-12 12:12 | MHC.CR.ITD ---
[address] [phone] F: [phone] Please see additional notes from [address] [phone] F: [phone] Please see additional notes from [facility] Cardiac Rehab Discharge/ITP Cardiac Rehab Discharge/ITP Start: 04/23/23 14:33 Freq: Status: Active Protocol: Activity Type Activity Date Activity User E-sign Co-sign Detail Recorded Client Recorded Date Recorded By Document 09/12/23 09:47 ANIL [id number] 09/12/23 10:01 ANIL 09/12/23 09:47 Cardiac Rehab Discharge/ITP [Exercise] -Cost Estimator Required No -Preferred Language Czech -Total Sessions Attended 22 -Comments PMH of CAD S/P PCI to LAD. Admitted 01/19 with unstable Angina and had NOA to mid and proximal RCA. No cardiac symptoms at Cardiology follow up . ECHO showed normal LV function.. He is monitoring BP at home. 30 DAY ASSESSMENT: Pt DOING WELL AND TOLERATING REHAB WITHOUT CV SYMPTOMS. HE IS PROGRESSING , TOLERATING INCREASED TIME AND RESISTANCE RESULTING IN INCREASE MET ACHIEVED. MAX MET ACHIEVED SO FAR IS 6 METS. 60 Day-Terry has been doing well in Cardiac Rehab. He has missed the last few sessions due to spouse's medical needs, and trying to obtain increased assistance at home. Tel. SR, VSS, no CV symptoms. No change in medications. He plans to discuss his Lipid Profile and Statins with MD. 90 Day Reassessment: Terry has continued to make progress despite his inconsistent attendance which is due to his need for caring for his bed bound . Terry tries to attend regularly but sometimes has to prioritize hsi 's care . He has however progressed to the point of achieving a 5.0 - 6.0 MET with ex and typically is in SR or ST. 120 Day-08/13/23 -Terry has been out intermittently due to COVID and now has a bad cold . States he was recently in bed three days. He continues to work in a 5-6 MET range for 50 minutes. VSS . No further palpitations. No ectopy noted . Tel. SR. He attends the educational sessions. Discharge--RN spoke with Terry who continues to be having difficulty with respiratory illness. States he also has multiple appointments for his who he cares for. Terry was motivated to modify his risk factors and exercise while he was here. Max Mets 6. VSS , Tel. SR. approximately 50 minutes.He was exercising approximately 50 minutes. Post assessments unable to be completed due to Terry not being able to retun for a last session. [Functional Assessment] -METS Achieved 3.54 -Resting HR 78 -Resting BP 152/80 -Resting SpO2 97 -Exercise HR 102 -Exercise BP 144/80 -RPE 12 -ECG Summary SR NO ECTOPY NOTED LAST SESSION -Fall Risk No [Exercise Plan] [Intervention] -Exercise Prescription NuStep, Recumbent Bike, Recumbent Elliptical, Treadmill,UBE, Upright Bike, Weights -Duration Intensity 36 Sessions -Exercise Minutes/Day 51 -Exercise Days/Week 3 -Angina with Exercise No -Peak METs 6.0 [Home Exercise] -Mode WALK -Frequency 5DAYS A WEEK -Intensity LIGHT -Comments 08/13/23-Walks 45 minutes a day with his son. 09/12/23-As above . He has not been able to exercise lately due to respiratory issues and appointments for his . He is aware he can return to cardiac rehab in the future if needed. [Exercise Education] -Exercise Education Exercise orientation, Exercise safety ,Home exercise, RPE,Self pulse checking,Signs and symptoms, Warmup/cooldown -Date Completed 04/25/23 -Initials CD -Education Summary The above were discussed by RN and Reinforced by Small Engine Mechanic 05/20/2023: EDUCATION ON WARM UP AND COOL DOWN, AND SELF PULSE CHECKING. Pt IS AWARE OF PROGRESSION OF EX AND DOING HIS PART TO WORK HARD WITHIN HIS TARGET HR. 06/18/23-Terry increases his exercise time and intensity without complaints. He does have limited ROM in his left shoulder, and has joint pain in hands and feet. He plans to discuss Statin with MD. He was encouraged to continue taking medication until discussed with MD. 07/17/2023 90 DAY Assessment: Completed. 08/13/23-No changes from above. Expresses he has difficulty making appointments due to caring for his , insurance issues. 09/12/23-As above . No change [Exercise Goals] -Exercise Most Days of the Week Yes -Exercise 30-45 mins/day Yes -Target HR Range +20 - +30 beats above resting -Target RPE range 11- -Increase METS next 30 days 0.5-1.0 METS Every two weeks -METs goal by Discharge 6 METS -Comments Walks 3-4 miles at home previously(per February, note). Wishes to increase exercise tolerance, and have understanding of safe exercise guidelines. Has not done as much walking due to caregiver fatigue 05/20/23: Pt PUSHING AND PROGRESSING IN CR SESSIONS. HAS ALREADY ACHIEVED MAX MET OF 6. 06/17/23-Terry has missed the last few sessions due to appointments for his . He continues to exercise at 5- 6METS. 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 They are, however, also seeking out additional assistance as needed. 07/17/2023: Maintaining METs of 5-6 with ex with no CV symptoms. Pt has surpassed initial goal. He understands the Target RPE and Target HR range. 08/13/23-Will change goal to consistently performing 6 METS and include weights as he provides physical care for his . 09/12/23- Discharge- Terry has not returned since 07/31/23. [Nutrition] [Hyperlipidemia] -Are lab results available Yes -Hyperlipidemia Yes -Lipid Draw Date 02/19/23 -Total Cholesterol 265 -LDL 96 -HDL 45 -Tryglycerides 621 -Comments NO NEW LABS OF 05/20/23 No new labs available at this time. 04/2023 [Diabetes] -Diabetes No -Fasting Glucose 107 -Date 01/19/23 -HbA1C 5.50 -Comments n/a [Weight Management] -Weight 91.4 kg -BMI 28.54 -Comments Lipids discussed; he will discuss with . 06/18/23-Last weight was 91.4 KG. Same wt recorded this date: 202208/13/23-Last weight 90.5 KG. Weight goal is 185 pounds. 09/12/22-Weight on 07/31 was 90 .7KG [Drug/Alchohol Use] -Drug/Alcohol Use Yes [Nutrition Plan] [Intervention] -Attended Nutrition Brochures [Nutrition Education] -Nutrition Education Hydration, Nutrition, Reading food labels -Date Completed 04/25/23 -Initials CD -Education Summary States understanding of diet modification, hydration 05/20/23: CONTINUE TO ENCOURAGE FLUID INTAKE AND HYDRATION ESPECIALLY WITH EX. 06/18/23-Terry states safe exercise guidelines and adjusts exercises if he has discomfort with shoulder, joints. He does not wish to pursue surgery for his shoulder at this time. 07/17/2023: Continues to prioritize hydration. nutrition and reading food labels. 08/13/23-Terry follows labs with his MD and tries to adjust diet as needed. 09/12/23- Discharge-As above. No changes [Nutrition Goals] -Goals BMI < 25, Fasting BG 80- 120 mg/dL,HDL > 40,LDL < 70, Total CHOL < 200 -Weight goal 185 -Comments Less Reflux with weight at 185 Last weight 91. 4 KG- 08/13/23-Weight 90.7KG Discharge- Weight 90.7KG [Psycho/Social] -Stage of Change Action -Occupation Retired -Return to Work Date N/A -PHQ9 Score 3 -Interpretation of Score Low -Plan of Action/Follow-up Support stress reduction Discharge-RN spoke with Terry over the phone today. Expresses he has not been feeling well. + stress due to his changing MD's and having multiple appointments. expressed that they may reach out for assistance at [facility] in the future. For now , Terry and his son provide care for spouse . He was encouraged to reach out through MD for assistance as needed, or through insurance. 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 Children supportive. 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 He does feel the stress of it, but seems to have good coping. Discussion about finding care for if he is feeling burned out was discussed. His children/son helps, but doesn't do personal care. Terry has been instructed to reach out if overnight caregiver burden becomes too much. 08/13/23-Terry has intermittently been out due to COVID, resp. issues. He hopes to be back next week. He had expressed he made need assistance at home but tries to stay healthy so that he and son can provide care for his spouse. DIscharge- Unable to return since visit. -Medication Changes Unknown at discharge [Psycho/Social Plan] [Intervention] -Attended No consult needed [Psycho/Social Education] -Psycho/Social Education Advanced directives, Coping techniques, Depression and CAD,Positive support system, Relaxation Techniques, Reviewed PHQ9 Score w/pt, Signs and symptoms of CAD ,Stress management -Date Completed 04/25/23 -Initials CD -Education Summary Watch a movie. PHQ9 discussed. States he does not have a lot of down time. S/S to report, general guidelines discussed. Children supportive and live in the area. 05/20/23; DOES NOT REPORT HAVING ANY S&S OF DEPRESSION OR STRESS. 07/17/2023: As stated above. Care giving burned is risk factor for depression, but he has supportive family. 08/13/23-No change. Will continue to discuss if he has any further needs at home. DIscharge-Terry stated understanding of risk modification and following up with MD's. He likes to walk for relaxation. No reported depression. PHQ9 unable to be repeated. [Psycho/Social Goals] -Goals Manage/reduce stress -Comments Takes care of spouse. Son lives at home-s /p head injury. Son has 20% vision. 07/17/23 No changes. 08/13/23-No change. States son helps with laundry, other chores. He walks with son daily. 09/12/23-Terry's last visit was 07/31/23. [Other Core Comp] [Hypertension] -Hypertention Yes -Resting BP: 116/76 -Medication Changes No -Comments Resting BP-116/ 70 at last session with a BP of 132/72 with exercise. Resting BP last visit was 124/ 60 08/13/23-Resting BP 102/50 last session() Discharge-BP 102/50 pre exercise,106/60 post exercise at last visit. [Tobacco Use] -Change in Use No [Heart Failure] -Dyspnea at Rest No -Dyspnea with Exercise No [Other Core Comp Plan] [Intervention] -Attended Recognizing Stressors,Self Monitoring BP [Other Core Comp Education] -Other Core Comp Education Medication compliance,Risk factor modifications, Understanding hypertension -Date Completed 04/25/23 -Initials CD -Education Summary States understanding of RF modification, measures BP at home. No issue with medications. He will follow Lipids with MD. Lipids reviewed. 90 Day: No changes: continues with above. 08/13/23-No changes. He states understanding of risk factors and plan for modifications, continued discussions with MD regarding Lipid Profile and Statin medication. He monitors BP at home. DIscharge-As above. Patient not feeling well during phone conversation today [Other Core Comp Goals] -Goals Manage risk factors, Medication compliance, Resting BP < 130/80 -Comments MD wishes a call if BP consistently > 130's. Terry measures BP at home also. 05/20/23: RESTING BP 116. 76 LAST SESSION . OVERALL ALL BP'S HAEV BEEN TRENDING DOWN. WILL CONTINUE TO MONITOR 06/18/23-As above. VSS. Terry checks his BP at home. 08/13/23-VSS. No issues with medication compliance. Resting BP <130 /80 Discharge-VSS. No issues with medication. [Medication Plan] [Intervention] -Medications ASA 81 MG ER Daily Metoprolol 50MG ER Daily Nitro-0.4MG every 5 min. PRN chest pain Plavix-75MG Daily Rosuvastatin 20MG Daily Ocuvite Daily [id number] Daily B3 Daily -Compliance Patient reports compliance w/ prescribed meds [Medication Education] -Education Importance of medication compliance, Medication purpose, Medication schedule, Medication side effects -Date Completed 04/25/23 -Initials CD -Education Summary Terry will discuss joint pain with MD. States discomfort is milder with Rosuvastatin than previous med(unsure of name). He will also bring in home BP measurements weekly. CONITINUED MED COMPLIANCE REPORTED. 08/13/23-No issues. Last session was due to the worst cold that he has had . Previously he had COVID. Discharge-Terry believes he has RSV. He is being followed at home. [Medication Goals] -Goals Adherence to medication compliance -Comments No issues 06/18/23-No changes in medication at this time. He has no difficulty with meds. 07/17/2023: Continued Compliance. 08/13/23- Continued compliance Discharge- Compliant with medication.
== END 2023-09-13 10:12 | disposition home or self-care (01) ==
LOC: HO.CR 10:00
PROVIDERS: PCP Family Medicine; Visit Provider Nurse Practitioner Family
DX: I25.10 Atherosclerotic heart disease of native coronary artery without angina pectoris (principal); Z95.1 Presence of aortocoronary bypass graft
CPT/HCPCS: 93798

== ENCOUNTER 2023-10-16 09:56 | Outpatient (AMB) | payer OTHER, SELFPAY ==
[2023-04-25 10:04] VITALS: BP 144/80; BP 152/80
[2023-06-18 07:50] VITALS: BP 116/76; BMI 28.5
--- NOTE | 2023-10-16 10:25 | MHC.PC.OV ---
Vital Signs 10/16/23 10:28 Height 5 ft 10 in Weight 207 lb BMI 29.7 BP 120/72 Blood Pressure Location Rt brachial Position Sitting Pulse 68 Pulse Source Pulse Oximeter Pulse Oximetry (%) 97 Oxygen Delivery Method Room Air Intake Visit Reasons: New patient-req physical Intake Note: Patient is here as a new patient, he's concerned about immune system today. He has a constant cough. States he has a cdry cough, and acid reflux with weight gain. Allergies No Known Allergies Allergy (Verified 10/16/23 10:31) Medication List - Last Reconciled 10/16/23 by Getachew Vasquez MD aspirin 81 mg PO DAILY cholecalciferol (vitamin D3) 50 mcg PO DAILY clopidogrel 75 mg PO DAILY coQ10 (ubiquinol) (Qunol Kuldip CoQ10) 100 mg PO BID metoprolol succinate ER 50 mg PO DAILY multivitamin 1 tab PO DAILY nitroglycerin mg sublingual rosuvastatin 20 mg PO DAILY Tobacco use date assessed: 10/16/23 Fall risk assessment: No Falls in past year Last assessed Fall Risk: 10/16/23 Dental Screening Dental Screen Date: 10/16/23 Did you have a dental visit in the last 12 months?: No Did you have a dental problem in the last 6 months where you did not have access to dental care?: No Was dental information given to patient?: Patient has dentist HPI New patient-req physical HPI Details New patient Prior PCP:? Dr Ernie Benson [facility] Last office visit/CPE: CPE Less than 6 mos Acute issue(s): Cough GERD PMHx: CAD & Stent Dr Jarvis [facility]., GERD, HLD & High Trigs,, HTN SurgHx: Cadiac stents, R hip, Umbilical hernia, Inguinal hernia. R hand repair FHx: Mom: Lymphedema, Skin CA, Dad: Leukemia SocHx: Nonsmoker, EtOH 1-2 drinks daily. PFSH Medical History (Updated 10/16/23 @ 11:26 by Connor Zuñiga) Hernia Back pain Arthritis High blood pressure Arterial stent thrombosis Surgical History (Updated 10/16/23 @ 10:49 by Gabriela Saldana CMA) H/O right wrist surgery History of hip surgery Family History (Updated 10/16/23 @ 10:41 by Gabriela A Shana, TABLET REPAIR) Mother High cholesterol Skin cancer Father Asthma Leukemia Alcoholism Social History Housing: Apartment Patient Tobacco Use Status: Never used Tobacco e-Cigarette/Vaping Use: Never Used service: No Current occupational status: retired Cognitive needs: No Hearing needs: Yes Vision needs: Yes (Patient wears glasses.) Questionnaire PHQ-9 Over the last 2 weeks, how often have you been bothered by any of the following problems? 1. Little interest or pleasure in doing things: not at all 2. Feeling down, depressed, or hopeless: not at all 3. Trouble falling or staying asleep, or sleeping too much: more than half the days 4. Feeling tired or having little energy: more than half the days 5. Poor appetite or overeating: not at all 6. Feeling bad about yourself - or that you are a failure or have let yourself or your family down: not at all 7. Trouble concentrating on things, such as reading the newspaper or watching television: not at all 8. Moving or speaking so slowly that other people could have noticed. Or the opposite - being so fidgety or restless that you have been moving around a lot more than usual: not at all 9. Thoughts that you would be better off or of hurting yourself in some way: not at all Total score: 4 Source: Developed by Drs. Leland Motta, Daisy Valencia, All Turpin and colleagues, with an educational lilliam from [employer]. Thrive Questionnaire Date Thrive assessed: 10/16/23 I am a: Patient What is your living situation today?: I have a steady place to live Within the past 12 months, did the food you bought not last and you didn't have the money to get more?: Never true Within the past 12 months, did you worry whether your food would run out before you got money to buy more?: Never true Do you have trouble paying for medicines?: No Do you have trouble getting transportation to medical appointments?: No Do you have trouble paying your heating and electricity bill?: No Do you have trouble taking care of your child, family member or friend?: No Do you have trouble with day-to-day activities such as bathing, preparing meals, shopping, managing finances, etc.?: No Are you currently unemployed and looking for a job?: No Are you interested in more education?: No THRIVE Score: 0 CHARIS-7 AMB Questionnaire CHARIS-7 Date CHARIS - 7 assessed: 10/16/23 Feeling nervous, anxious, or on edge: 0 = Not at all Not being able to stop or control worryin = Not at all Worrying too much about different things: 0 = Not at all Trouble relaxin = Not at all Being so restless that it is hard to sit still: 0 = Not at all Becoming easily annoyed or irritable: 1 = Several days Feeling afraid as if something awful might happen: 0 = Not at all Total CHARIS-7 score (0-4 normal; 5-9 mild; 10-14 moderate; 15-21 severe): 1 Source: Developed by Drs. Leland Motta, Daisy Valencia, All Turpin and colleagues, with an educational lilliam from [employer]. Review of Systems Const Denies chills, Denies fatigue, Denies fever(s), Denies headache(s) and Denies weakness ENT Denies dizziness and Denies headache(s) Card Denies chest pain, Denies lightheadedness, Denies dyspnea and Denies other (Palpitations) Resp Reports cough, Denies dyspnea and Denies wheezing Musc Denies numbness and Denies tingling Neuro Denies dizziness, Denies headache(s), Denies numbness, Denies tingling, Denies paresthesias and Denies weakness Psych Denies anxiety and Denies depression Endo Denies fatigue Aller/Immun Denies wheezing Physical exam (Primary Care) Vital Signs: Last Vital Signs Pulse 68 10/16/23 10:28 BP 120/72 10/16/23 10:28 Pulse Ox 97 10/16/23 10:28 Oxygen Delivery Method Room Air 10/16/23 10:28 BMI result Body Mass Index 29.7 Tobacco/Smoking Status: Tobacco use Status Tobacco use date assessed 10/16/23 10/16/23 10:49 Patient Tobacco Use Status Never used Tobacco 10/16/23 10:28 e-Cigarette/Vaping Use Never Used 10/16/23 10:49 PHQ-9: PHQ-9 Score PHQ-9: Total score 4 10/16/23 10:58 Thrive Assessment: Date of Thrive Assessment Date Thrive assessed 10/16/23 10/16/23 10:49 Const General: no acute distress and well developed Nutritional Appearance: well nourished Orientation/consciousness: patient oriented x3 [facility] Head: Yes normocephalic and Yes atraumatic Eyes General: appearance normal, both eyes and all related structures Pupils: Equal, round and reactive pupils present EOM: EOMs intact bilaterally Resp Other: Fine crackles at the base Effort & Inspection: normal respiratory effort Auscultation: clear to auscultation bilaterally Cardio Rate: regular rate Rhythm: regular rhythm Heart sounds: S1 normal heart sound present, S2 normal heart sound present, no gallops, no murmurs and no rubs Neuro General: patient oriented x3 and gait normal Cranial nerves: Yes Equal, round and reactive pupils present Psych Affect: normal affect Assessment and Plan Assessment & Plan (1) GERD (gastroesophageal reflux disease): Code(s): K21.9 - Gastro-esophageal reflux disease without esophagitis Plan: Trial?famotidine (2) Cough: Code(s): R05.9 - Cough, unspecified Plan: Chronic?cough?which?may?be?related?to?GERD?as?above. He?will?trial?famotidine Also?checking?chest?x-ray (3) High blood pressure: Code(s): I10 - Essential (primary) hypertension Plan: Taking?metoprolol?and?blood?pressure?is?well?controlled.??Goal?is?less?than?130/80?for?patient?with?CAD Continue?metoprolol (4) Hyperlipidemia: Code(s): E78.5 - Hyperlipidemia, unspecified Plan: Patient?is?on?rosuvastatin. He?notes?that?despite?this?his?lipid?levels?are?often?still?high?and?triglycerides?are?very?high. He?is?tried?numerous?other?medications?including?fenofibrate?and?gemfibrozil. 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 Followed?by?[facility]?cardiology He?is?on?clopidogrel,?aspirin,?metoprolol?and?rosuvastatin. Continue?current?medication?regimen?and?follow-up?with?Cardiology Will?request?[facility]?cardiology?most?recent?note (6) Back pain: Code(s): M54.9 - Dorsalgia, unspecified Plan: Patient?notes?some?intermittent?back?pain?and?posterior?neck?pain No?current?symptoms. He?has?benefited?from?chiropractor?in?the?past?and?could?be?referred?back?if?he?has?new?symptoms?or?could?be?referred?to?physical?therapy. (7) Laboratory exam ordered as part of routine general medical examination: Code(s): Z00.00 - Encounter for general adult medical examination without abnormal findings Plan: Check?lab Orders: Orders Comprehensive [place]. Panel Fast Today Z00.00 - Encounter for general adult medical examination without abnormal findings Lipid Panel Today Z00.00 - Encounter for general adult medical examination without abnormal findings Prostate Specific Antigen Scr Today Z12.5 - Encounter for screening for malignant neoplasm of prostate UA and rflx microscopic Today Z00.00 - Encounter for general adult medical examination without abnormal findings TSH reflex Free T4 Today Z00.00 - Encounter for general adult medical examination without abnormal findings XR chest 2V Today R05.9 - Cough, unspecified Complete Blood Count Auto Diff Today Z00.00 - Encounter for general adult medical examination without abnormal findings Microalbumin, Random (w Creat) Today I10 - Essential (primary) hypertension Vitamin D 25-OH Total Today E55.9 - Vitamin D deficiency, unspecified Medications: New famotidine 20 mg PO DAILY 30 days 30 tabs 2RF Coding Level of Care Code New Pt Level 3 (89538) Diagnoses GERD (gastroesophageal reflux disease) K21.9 Cough R05.9 High blood pressure I10 Hyperlipidemia E78.5 Coronary artery disease I25.10 Back pain M54.9 Laboratory exam ordered as part of routine general medical examination Z00.00
[2023-10-16 10:28] VITALS: BP 120/72; PULSE 68; O2SAT 97; BMI 29.7
== END 2023-10-16 11:31 | disposition home or self-care (01) ==
PROVIDERS: PCP Family Medicine; Visit Provider Family Medicine
DX: K21.9 Gastro-esophageal reflux disease without esophagitis (principal); R05.9 Cough, unspecified; I10 Essential (primary) hypertension; E78.5 Hyperlipidemia, unspecified; I25.10 Atherosclerotic heart disease of native coronary artery without angina pectoris; M54.9 Dorsalgia, unspecified; Z00.00 Encounter for general adult medical examination without abnormal findings
CPT/HCPCS: 99203

== ENCOUNTER 2023-10-28 08:39 | Outpatient (REF) | payer OTHER, SELFPAY ==
--- NOTE | ~2023-10-28 | XR_ITS ---
EXAMINATION: XR CHEST CLINICAL INFORMATION: Cough, crackles in lung. COMPARISON: None available. TECHNIQUE: 2 views of the chest were obtained. FINDINGS: The lungs are well inflated. Degenerative changes in the thoracic spine. No gross pleural effusion. Mild biapical pleural thickening. There is no gross pneumothorax. Tortuous thoracic aorta. Heart size within normal limits. Minimal linear opacities in the lower left lung likely represent subsegmental atelectasis. XR/XR chest 2V IMPRESSION: Minimal linear opacities in the lower left lung likely represent subsegmental atelectasis.
[2023-10-28 08:51] LABS: MANUAL DIFF FLAG NO
[2023-10-28 09:25] LABS: Basophils Percent Auto 0.6 % (0-2); Eosinophils Absolute Auto 0.1 X10*3/uL (0.0-0.4); Eosinophils Percent Auto 2.4 % (0-4); Hematocrit 44.8 % (42.0-52.0); Hemoglobin 14.9 g/dl (14.0-18.0); Imm Gran Abs Auto 0.02 X10*3/uL (0.00-0.03); Imm Gran Pct Auto 0.4 % (0.0-0.4); Lymphocytes Absolute Auto 1.8 X10*3/uL (1.2-4.9); Mean Corpuscular HGB Conc 33.3 g/dl (31.0-36.0); Mean Corpuscular Hemoglobin 29.9 pg (27.0-33.0); Mean Corpuscular Volume 89.8 fL (80.0-98.0); Mean Platelet Volume 9.4 fL (9.4-12.4); Monocytes Absolute Auto 0.4 X10*3/uL (0.1-1.2); Monocytes Percent Auto 7.1 % (2-11); Neutrophils Absolute Auto 2.8 x10*3/uL (2.0-8.3); Neutrophils Percent Auto 54.5 % (45-73); Platelet Count 207 X10*3/uL (160-400); Red Blood Count 4.99 X10*6/uL (4.60-5.80); Red Cell Distribution Width 12.5 % (11.0-16.0); White Blood Count 5.1 X10*3/uL (4.8-10.8)
[2023-10-28 10:02] LABS: Alanine Aminotransferase 22 U/L (0-40); Albumin Level 4.2 g/dL (3.5-5.0); Alkaline Phosphatase 49 U/L (39-117); Anion Gap 12 (12-20); Aspartate Amino Transferase 19 U/L (5-37); Bilirubin Total 0.6 mg/dL (0.0-1.0); Blood Urea Nitrogen 11 mg/dL (9-16); Calcium 9.3 mg/dL (8.4-10.2); Carbon Dioxide 27 mmol/L (22-29); Chloride 104 mmol/L (96-108); Cholesterol 180 mg/dL (<200); Estimated Glomerular Filt Rate > 60; Glucose Fasting 110 mg/dL (60-99); HDL Cholesterol 48 mg/dL (>40); LDL Cholesterol Calculated 84 mg/dL (<100); Potassium 4.1 mmol/L (3.3-5.1); Sodium 139 mmol/L (135-145); Triglycerides 243 mg/dL (<150)
[2023-10-28 10:13] LABS: Prostate Specific Antigen Scr 0.21 ng/mL (<0.05-4.0)
[2023-10-28 10:19] LABS: Vitamin D 25-OH Total 24.3 ng/mL (>30)
[2023-10-28 12:36] LABS: Appearance Urine Clear; Color Urine Yellow; Glucose Urine UA Negative (Negative); Leukocyte Esterase Urine Negative (Negative); Nitrite Urine Negative (Negative); Urine Blood Negative (Negative); Urine Ketones Negative (Negative); Urine Protein Negative (Neg-Trace)
[2023-10-28 13:22] LABS: Creatinine Urine 53.59 mg/dL; Microalbumin Urine < 5.0 mg/L
== END 2023-10-28 08:40 | disposition home or self-care (01) ==
LOC: HO.XRAY 08:39
PROVIDERS: PCP Family Medicine; Visit Provider Family Medicine
DX: Z00.00 Encounter for general adult medical examination without abnormal findings (principal); R05.9 Cough, unspecified; I10 Essential (primary) hypertension; E55.9 Vitamin D deficiency, unspecified; Z12.5 Encounter for screening for malignant neoplasm of prostate
CPT/HCPCS: 36415; 71046; 80053; 80061; 81003; 82043; 82306; 82570; 84153; 84443; 85025

== ENCOUNTER 2024-02-05 12:05 | Outpatient (AMB) | payer OTHER, SELFPAY ==
[2024-02-05 12:14] VITALS: BP 120/62; PULSE 73; O2SAT 95; BMI 29.6
--- NOTE | 2024-02-05 12:14 | MHC.PC.OV ---
Vital Signs 02/05/24 12:14 Height 5 ft 10 in Weight 206 lb BMI 29.6 BP 120/62 Blood Pressure Location Lt brachial Position Sitting Pulse 73 Pulse Source Pulse Oximeter Pulse Oximetry (%) 95 Oxygen Delivery Method Room Air Intake Visit Reasons: CPE with f/u labs and health maint. Intake Note: Patient is here for his physical. Allergies No Known Allergies Allergy (Verified 02/05/24 12:16) Medication List - Last Reconciled 02/05/24 by Getachew Vasquez MD aspirin 81 mg PO DAILY cholecalciferol (vitamin D3) 50 mcg PO DAILY 90 days coQ10 (ubiquinol) (Qunol Kuldip CoQ10) 100 mg PO BID metoprolol succinate ER 50 mg PO DAILY multivitamin 1 tab PO DAILY rosuvastatin 20 mg PO DAILY Tobacco use date assessed: 02/05/24 Fall risk assessment: No Falls in past year Last assessed Fall Risk: 02/05/24 Dental Screening Dental Screen Date: 02/05/24 Did you have a dental visit in the last 12 months?: Yes Did you have a dental problem in the last 6 months where you did not have access to dental care?: No Was dental information given to patient?: Patient has dentist HPI CPE with f/u labs and health maint. HPI Details 73 y/o male presents for an extended exam with f/u labs and health maintenance. Hx of CAD and stent. Labs were drawn 10/28/23. Reviewed labs with pt. Triglycerides 243. TC 180. LDL 84. HDL 48. He is on rosuvastatin 20mmg daily. Vitamin D low at 24.3. Blood pressure today 120/62. He is on metoprolol 50mg daily. Had trialed famotidine for his chronic cough which may be secondary to GERD. He notes famotidine has not been helping. Chest x-ray showed some Pt notes last colonoscopy was about 10 years ago. Chest x-ray showed minimal linear opacities in lower L lung, likely represent subsegmental atelectasis. Elevated fasting glucose and A1c today 02/05/24 5.6%. [facility] Medical History Hernia Back pain Arthritis High blood pressure Arterial stent thrombosis Surgical History H/O right wrist surgery History of hip surgery Family History Mother High cholesterol Skin cancer Father Asthma Leukemia Alcoholism Social History Housing: Apartment Patient Tobacco Use Status: Never used Tobacco e-Cigarette/Vaping Use: Never Used service: No Current occupational status: retired Cognitive needs: No Hearing needs: Yes Vision needs: Yes (Patient wears glasses.) Questionnaire Thrive Questionnaire Date Thrive assessed: 10/16/23 CHARIS-7 AMB Questionnaire CHARIS-7 Date CHARIS - 7 assessed: 10/16/23 Source: Developed by Drs. Leland Motta, Daisy Valencia, All Turpin and colleagues, with an educational lilliam from [employer]. Review of Systems Const Denies chills, Denies fatigue, Denies fever(s), Denies headache(s) and Denies weakness Eyes Denies change in vision ENT Denies dizziness, Denies headache(s), Denies hearing loss, Denies nasal congestion, Denies sinus pain, Denies sinus pressure and Denies sore throat Card Denies chest pain, Denies lightheadedness, Denies dyspnea and Denies other (palpitations) Resp Reports cough, Denies dyspnea and Denies wheezing GI Denies abdominal pain, Denies melena, Denies hematochezia, Denies change in bowel habits, Denies dyspepsia and Denies nausea Denies hematuria and Denies dysuria Musc Denies abnormal gait, Denies myalgias, Denies arthralgias, Denies numbness and Denies tingling Skin/Breast Denies rash, Denies unusual bruising and Denies wounds Neuro Denies abnormal gait, Denies dizziness, Denies headache(s), Denies memory loss, Denies numbness, Denies Sensory deficit (Neuro), Denies tingling and Denies weakness Psych Denies anxiety, Denies depression and Denies memory loss Endo Denies cold intolerance, Denies fatigue, Denies heat intolerance, Denies polydipsia and Denies polyuria Jackson/Lymph Denies easy bleeding and Denies easy bruising Aller/Immun Denies wheezing Physical exam (Primary Care) Vital Signs: Last Vital Signs Pulse 73 02/05/24 12:14 BP 120/62 02/05/24 12:14 Pulse Ox 95 02/05/24 12:14 Oxygen Delivery Method Room Air 02/05/24 12:14 BMI result Body Mass Index 29.6 Tobacco/Smoking Status: Tobacco use Status Tobacco use date assessed 02/05/24 02/05/24 12:22 Patient Tobacco Use Status Never used Tobacco 02/05/24 12:15 e-Cigarette/Vaping Use Never Used 02/05/24 12:15 Thrive Assessment: Date of Thrive Assessment Date Thrive assessed 10/16/23 02/05/24 12:15 Const General: no acute distress, well developed, alert and awake Nutritional Appearance: well nourished Orientation/consciousness: patient oriented x3 [facility] Head: Yes normocephalic and Yes atraumatic Ears: hearing grossly normal bilaterally and TM's normal bilaterally General nose exam: Normal external nose present and Normal nares present Mouth: Normal oral and palatal mucosa present and moist mucous membranes Teeth and gingiva: dentition normal Throat: Yes posterior oropharynx normal Eyes General: appearance normal, both eyes and all related structures Pupils: Equal, round and reactive pupils present and Pupil accommodation reflex normal EOM: EOMs intact bilaterally Neck Neck: Yes normal visual inspection, Yes no lymphadenopathy and Yes trachea midline Thyroid: Thyroid normal Carotids: no bruits Lymphatic: no lymphadenopathy noted Chest Chest palpation & inspection: normal inspection of the chest Resp Effort & Inspection: normal respiratory effort Auscultation: clear to auscultation bilaterally Cardio Rate: regular rate Rhythm: regular rhythm Heart sounds: S1 normal heart sound present, S2 normal heart sound present, no gallops, no murmurs and no rubs Bruits: no abdominal aortic bruits and no carotid bruits GI Palpation (GI): No Abdominal aortic bruit present, Soft to palpation, nontender, No hepatosplenomegaly present and No Rebound tenderness present Auscultation: normal bowel sounds General: Yes no CVA tenderness Back/Spine/Pelvis Back: no CVA tenderness Cervical Spine: cervical ROM normal and No Cervical spine tenderness Thoracic/Lumbar Spine: thoraco-lumbar ROM normal, No pain with thoraco-lumbar ROM, No thoracic spinal tenderness and No lumbar spinal tenderness Skin Lesions: no lesions Rashes: no rashes Trauma: no lacerations or abrasions Wounds: no wounds Nails: normal Neuro General: patient oriented x3 Cranial nerves: Yes Equal, round and reactive pupils present Cognition (Neuro): normal cognition Gait exam (Neuro): Normal gait present Motor exam (neuro): 5/5 motor strength present throughout Sensory Exam: No Sensory deficit (Neuro) Deep tendon reflexes (DTR's): Right patellar reflex intensity grade: 2+ and Left patellar reflex intensity grade: 2+ Extrem General: Yes normal to inspection and No edema Psych Appearance: grossly normal Affect: normal affect Attitude: cooperative Thought process: Normal thought process present Results AMB Hemoglobin A1c AMB Hemoglobin A1c 5.6 % Last Edit by Gabriela Saldana CMA on 02/05/24 12:59 Results Reviewed Results Reviewed: Laboratory Last Values Hgb A1c (Clinic) 5.6 % (4.0-6.0) 02/05/24 12:58 Assessment and Plan Assessment & Plan (1) High blood pressure: Code(s): I10 - Essential (primary) hypertension Plan: Blood?pressure?is?well?controlled.??Goal?is?less?than?130/80 Continue?current?medication?regimen (2) Coronary artery disease: Code(s): I25.10 - Atherosclerotic heart disease of [place] coronary artery without angina pectoris Plan: History?of?stent Has?just?completed?clopidogrel?and?this?is?now?discontinued He?will?continue?aspirin?indefinitely Continue?rosuvastatin?and?metoprolol Follow-up?with?Cardiology?as?recommended (3) Screening for colon cancer: Code(s): Z12.11 - Encounter for screening for malignant neoplasm of colon Plan: Referred?to?Gastroenterology (4) GERD (gastroesophageal reflux disease): Code(s): K21.9 - Gastro-esophageal reflux disease without esophagitis Plan: Referred?to?Gastroenterology He?does?have?omeprazole?which?he?takes?intermittently He?discontinued?famotidine (5) Screening for prostate cancer: Code(s): Z12.5 - Encounter for screening for malignant neoplasm of prostate Plan: PSA?was?within?normal?range Will?continue?annual?screening (6) Elevated fasting blood sugar: Code(s): R73.01 - Impaired fasting glucose Plan: A1c: ?5.6% Top?normal?range. Patient?had?elevated?fasting?blood?sugars?however Likely?insulin?resistance?and?I?advised?lifestyle?changes?including?a?diet?lower?in?sugars?and?starches?and?increased?exercise. (7) Cough: Code(s): R05.9 - Cough, unspecified Plan: Ongoing?chronic?cough.??This?seems?to?have?decreased?some?but?is?still?present. Chest?x-ray?was?negative Unclear?if?using?antacid?medications?has?decreased?this?as?he?takes?the?medication?a?little?to?intermittently Asking?GI?to?optimize?his?reflux?regimen If?cough?persists?will?consider?PFTs?or?referral?to?pulmonology (8) Low vitamin D level: Code(s): R79.89 - Other specified abnormal findings of blood chemistry Plan: Will?increase?vitamin-D (9) Hearing loss: Code(s): H91.90 - Unspecified hearing loss, unspecified ear Plan: Wears?hearing?aids Advised?regular?follow-up?with?hearing?aid?provider (10) Right hip pain: Code(s): M25.551 - Pain in right hip Plan: Ongoing?right?hip?pain?and?abnormal?MRI?in?2021 Referred?him?to?orthopedic?surgery (11) Adult general medical exam: Code(s): Z00.00 - Encounter for general adult medical examination without abnormal findings Plan: 73-year-old?male?presents?for?an?extended?exam Encouraged?healthy?diet?with?active?lifestyle?and?plenty?of?exercise Orders: Orders AMB Hemoglobin A1c Today Z13.9 - Encounter for screening, unspecified Referrals Orthopedics Referral M25.551 - Pain in right hip Gastroenterology Referral K21.9 - Gastro-esophageal reflux disease without esophagitis, R05.9 - Cough, unspecified, Z12.11 - Encounter for screening for malignant neoplasm of colon Medications: Changed From cholecalciferol (vitamin D3) 50 mcg PO DAILY 90 days 90 caps 1RF To cholecalciferol (vitamin D3) 62.5 mcg PO DAILY 90 days 90 caps 1RF Coding Level of Care Code Est Pt Level 4 (81331) Diagnoses High blood pressure I10 Coronary artery disease I25.10 Screening for colon cancer Z12.11 GERD (gastroesophageal reflux disease) K21.9 Screening for prostate cancer Z12.5 Elevated fasting blood sugar R73.01 Cough R05.9 Low vitamin D level R79.89 Hearing loss H91.90 Right hip pain M25.551 Adult general medical exam Z00.00
== END 2024-02-05 13:11 | disposition home or self-care (01) ==
PROVIDERS: PCP Family Medicine; Visit Provider Family Medicine
DX: Z00.00 Encounter for general adult medical examination without abnormal findings (principal); I10 Essential (primary) hypertension; I25.10 Atherosclerotic heart disease of native coronary artery without angina pectoris; R73.01 Impaired fasting glucose; Z12.11 Encounter for screening for malignant neoplasm of colon; K21.9 Gastro-esophageal reflux disease without esophagitis; Z12.5 Encounter for screening for malignant neoplasm of prostate; R05.9 Cough, unspecified; R79.89 Other specified abnormal findings of blood chemistry; H91.93 Unspecified hearing loss, bilateral; M25.551 Pain in right hip
CPT/HCPCS: 83036; 99214; 99397

== ENCOUNTER 2024-02-27 08:29 | Outpatient (REF) | payer OTHER, SELFPAY ==
--- NOTE | ~2024-02-27 | XR_ITS ---
EXAMINATION: XR PELVIS CLINICAL INFORMATION: Pain in unspecified hip. COMPARISON: MR right hip, x-ray right hip. TECHNIQUE: AP view of the pelvis. FINDINGS: Diffuse demineralization. Degenerative changes in the imaged lower lumbar spine. Redemonstration of radiolucent 4.4 cm lesion in the right femoral neck and similar 3.5 cm lucent lesion in the proximal femoral diaphysis. Sclerotic right intertrochanteric lesion measuring 1.3 cm redemonstrated. Moderate degenerative changes in the bilateral hips. Similar appearance of exostoses along the lateral aspect of the right iliac wing. XR/XR pelvis 1-2V IMPRESSION: 1. Redemonstration of radiolucent 4.4 cm lesion in the right femoral neck and similar 3.5 cm lucent lesion in the proximal femoral diaphysis. Sclerotic right intertrochanteric lesion measuring 1.3 cm redemonstrated. 2. Moderate degenerative changes in the bilateral hips. 3. Similar appearance of exostoses along the lateral aspect of the right iliac wing. 4. These lesions were better characterized on MRI.
== END 2024-02-27 08:30 | disposition home or self-care (01) ==
LOC: HO.HOSX 08:29
PROVIDERS: Visit Provider Orthopaedic Surgery
DX: M16.51 Unilateral post-traumatic osteoarthritis, right hip (principal)
CPT/HCPCS: 72170; 99202

== ENCOUNTER 2024-02-27 08:57 | Outpatient (AMB) | payer OTHER, SELFPAY ==
[2024-02-27 09:10] VITALS: BMI 29.6
--- NOTE | 2024-02-27 09:10 | MHC.OFFVIS ---
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 Hx of right hip surgery when he was 13. Patient reports that he is having pain with certain movements, he is unable to identify what movements in particular. His pain has not been presents lately, but he would like to make sure he will not haec trouble down the road. No history of injections He mentions previous right knee injury while skiing that is bothering him more than the hip. 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 Hx of right hip surgery when he was 13. Patient reports that he is having pain with certain movements, he is unable to identify what movements in particular. Terry describes having had a surgery approximately 60 years ago as a child. This involved taking bone from his pelvis and putting it into his hip. He states it was successful according to the doctor's and he has had minimal pain over his lifetime but proximally 2 years ago he was having some right hip pain. An MRI at that time was obtained showed some [id number] arthritic changes in the right hip. He has since described feeling pretty good most of the time. He is occasional pain but not recently. He takes care of his and is concerned that he needs to stay healthy in order to do this. [facility] Medical History (Updated 02/27/24 @ 09:44 by Christiano Torres MD) Hernia Back pain Arthritis High blood pressure Arterial stent thrombosis Surgical History (Updated 02/27/24 @ 09:16 by Katie Andujar CMA) H/O right wrist surgery History of hip surgery Family History Mother High cholesterol Skin cancer Father Asthma Leukemia Alcoholism Social History Housing: Apartment Patient Tobacco Use Status: Never used Tobacco e-Cigarette/Vaping Use: Never Used service: No Current occupational status: retired Cognitive needs: No Hearing needs: Yes Vision needs: Yes (Patient wears glasses.) Physical Exam Vital Signs: BMI result Body Mass Index 29.6 Extrem Other: No gait antalgia Full ROM right hip Results Reviewed Results Reviewed: I personally reviewed the MR images.He mentions previous right knee injury while skiing that is bothering him more than the hip. [place] [facility] [place]: * Moderate osteoarthritis of the right hip. * The labrum of the right hip is degenerated and torn, and there is a small paralabral cyst of the posterosuperior acetabulum. * Findings consistent with old healed osteotomy of the proximal right femur, and there appear to be old fibrocystic changes within the medullary cavity the proximal femur. No suspicious bone lesion. 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 No acute avulsion fractures. Assessment & Plan Assessment & Plan (1) Post-traumatic osteoarthritis of right hip: Code(s): M16.51 - Unilateral post-traumatic osteoarthritis, right hip Category: Medical Plan: Healthy 73-year-old gentleman with mild to moderate right hip arthritis. He is minimally symptomatic. I do not recommend intervention at this time. We briefly discussed options going forward in terms of exercise and activity. He can see me back in a year or 2 and we can obtain a repeat radiograph but no orthopedic intervention warranted at this time. Orders: Orders XR pelvis 1-2V Today M25.559 - Pain in unspecified hip Coding Level of Care Code New Pt Level 3 (07579) Diagnoses Post-traumatic osteoarthritis of right hip M16.51
== END 2024-02-27 09:44 | disposition home or self-care (01) ==
PROVIDERS: PCP Family Medicine; Visit Provider Orthopaedic Surgery
DX: M16.51 Unilateral post-traumatic osteoarthritis, right hip (principal)
CPT/HCPCS: 99203

== ENCOUNTER 2024-04-28 11:27 | Outpatient (AMB) | payer OTHER, SELFPAY ==
--- NOTE | 2024-04-28 11:44 | MHC.PC.OV ---
Vital Signs 04/28/24 11:48 Height 5 ft 10 in Weight 204 lb BMI 29.3 BP 108/68 Blood Pressure Location Lt brachial Position Sitting Respiration 12 Pulse 69 Pulse Source Pulse Oximeter Temp 98 F Temp Source Tympanic Pulse Oximetry (%) 94 Oxygen Delivery Method Room Air Intake Visit Reasons: f/u HTN, blood sugars Intake Note: follow up on a1c Allergies No Known Allergies Allergy (Verified 04/28/24 11:47) Medication List - Last Reconciled 04/28/24 by Getachew Vasquez MD aspirin 81 mg PO DAILY cholecalciferol (vitamin D3) 62.5 mcg PO DAILY 90 days coQ10 (ubiquinol) (Qunol Kuldip CoQ10) 100 mg PO BID metoprolol succinate ER 50 mg PO DAILY multivitamin 1 tab PO DAILY rosuvastatin 20 mg PO DAILY Tobacco use date assessed: 02/05/24 Dental Screening Dental Screen Date: 02/05/24 HPI f/u HTN, blood sugars HPI Details 73 y/o male presents to f/u hypertension, elevated fasting blood sugars and chronic cough. Hx of CAD. Blood pressure today 108/68. He is on metoprolol 50mg daily. A1c today 04/28/24 5.8%. Pt notes cough resolved. Ongoing complaints of ED. [facility] Medical History (Updated 04/28/24 @ 12:20 by Connor Zuñiga) Hernia Back pain Arthritis High blood pressure Arterial stent thrombosis Surgical History (Updated 02/27/24 @ 09:16 by Katie Andujar CMA) H/O right wrist surgery History of hip surgery Family History Mother High cholesterol Skin cancer Father Asthma Leukemia Alcoholism Social History Housing: Apartment Patient Tobacco Use Status: Never used Tobacco e-Cigarette/Vaping Use: Never Used service: No Current occupational status: retired Cognitive needs: No Hearing needs: Yes Vision needs: Yes (Patient wears glasses.) Questionnaire Thrive Questionnaire Date Thrive assessed: 10/16/23 CHARIS-7 AMB Questionnaire CHARIS-7 Date CHARIS - 7 assessed: 10/16/23 Source: Developed by Drs. Leland Motta, Daisy Valencia, All Turpin and colleagues, with an educational lilliam from [employer]. Review of Systems Const Denies chills, Denies fatigue, Denies fever(s), Denies headache(s) and Denies weakness ENT Denies dizziness and Denies headache(s) Card Denies chest pain, Denies lightheadedness, Denies dyspnea and Denies other (Palpitations) Resp Denies cough, Denies dyspnea, Denies wheezing and Denies other ( shortness of breath) Musc Denies numbness and Denies tingling Neuro Denies dizziness, Denies headache(s), Denies numbness, Denies tingling, Denies paresthesias and Denies weakness Psych Denies anxiety and Denies depression Endo Denies fatigue Aller/Immun Denies wheezing Physical exam (Primary Care) Vital Signs: Last Vital Signs Temp 98 F 04/28/24 11:48 Pulse 69 04/28/24 11:48 Resp 12 04/28/24 11:48 BP 108/68 04/28/24 11:48 Pulse Ox 94 04/28/24 11:48 Oxygen Delivery Method Room Air 04/28/24 11:48 BMI result Body Mass Index 29.3 Tobacco/Smoking Status: Tobacco use Status Tobacco use date assessed 02/05/24 04/28/24 11:45 Patient Tobacco Use Status Never used Tobacco 04/28/24 11:45 e-Cigarette/Vaping Use Never Used 04/28/24 11:45 Thrive Assessment: Date of Thrive Assessment Date Thrive assessed 10/16/23 04/28/24 11:45 Const General: no acute distress and well developed Nutritional Appearance: well nourished Orientation/consciousness: patient oriented [facility]3 [facility]: Yes normocephalic and Yes atraumatic Eyes General: appearance normal, both eyes and all related structures Pupils: Equal, round and reactive pupils present EOM: EOMs intact bilaterally Resp Effort & Inspection: normal respiratory effort Auscultation: clear to auscultation bilaterally Cardio Rate: regular rate Rhythm: regular rhythm Heart sounds: S1 normal heart sound present, S2 normal heart sound present, no gallops, no murmurs and no rubs Neuro General: patient oriented x3 and gait normal Cranial nerves: Yes Equal, round and reactive pupils present Psych Affect: normal affect Assessment and Plan Assessment & Plan (1) High blood pressure: Code(s): I10 - Essential (primary) hypertension Plan: Blood?pressure?is?controlled.??Goal?is?less?than?130/80 Continue?current?medication (2) Coronary artery disease: Code(s): I25.10 - Atherosclerotic heart disease of platinum coronary artery without angina pectoris Plan: Stable (3) Pre-diabetes: Code(s): R73.03 - Prediabetes Plan: A1c?5.8%. Encouraged?diet?low?in?sugars?and?starches Encouraged?exercise (4) Erectile dysfunction: Code(s): N52.9 - Male erectile dysfunction, unspecified Plan: Patient?is?cleared?to?use?sildenafil?as?prescribed?by?his?prior?PCP Coding Level of Care Code Est Pt Level 4 (12843) Diagnoses High blood pressure I10 Coronary artery disease I25.10 Pre-diabetes R73.03 Erectile dysfunction N52.9
[2024-04-28 11:48] VITALS: BP 108/68; PULSE 69; RESP 12; TEMP 36.6; O2SAT 94; BMI 29.3
== END 2024-04-28 12:23 | disposition home or self-care (01) ==
PROVIDERS: PCP Family Medicine; Visit Provider Family Medicine
DX: I10 Essential (primary) hypertension (principal); I25.10 Atherosclerotic heart disease of native coronary artery without angina pectoris; R73.03 Prediabetes; N52.9 Male erectile dysfunction, unspecified
CPT/HCPCS: 99214

== ENCOUNTER 2024-07-29 11:20 | Outpatient (AMB) | payer OTHER, SELFPAY ==
--- NOTE | 2024-07-29 11:27 | MHC.PC.OV ---
Vital Signs 07/29/24 11:31 Height 5 ft 10 in Weight 207 lb BMI 29.7 BP 120/70 Blood Pressure Location Rt brachial Position Sitting Respiration 16 Pulse 71 Pulse Source Pulse Oximeter Temp 98.8 F Temp Source Oral Pulse Oximetry (%) 95 Oxygen Delivery Method Room Air Intake Visit Reasons: f/u hypertension, chronic conditions Intake Note: f/u for HTN and chronic conditions Allergies No Known Allergies Allergy (Verified 07/29/24 11:28) Tobacco use date assessed: 02/05/24 Dental Screening Dental Screen Date: 02/05/24 HPI f/u hypertension, chronic conditions HPI Details Patient?presents?to?follow-up?hypertension?and?pre?diabetes Blood?pressure?is?120/70. Goal?is?less?than?130/80?as?patient?has?coronary?artery?disease. Taking?medications?as?prescribed He?has?been?working?on?decreasing?sugars?and?starches?diet,?particular?the?orange?juice. A1c?now?5.5%,?down?from?5.8% PFSH Medical History (Updated 04/28/24 @ 12:20 by Connor Zuñiga) Hernia Back pain Arthritis High blood pressure Arterial stent thrombosis Surgical History (Updated 02/27/24 @ 09:16 by Katie Andujar CMA) H/O right wrist surgery History of hip surgery Family History Mother High cholesterol Skin cancer Father Asthma Leukemia Alcoholism Social History Housing: Apartment Patient Tobacco Use Status: Never used Tobacco e-Cigarette/Vaping Use: Never Used service: No Current occupational status: retired Cognitive needs: No Hearing needs: Yes Vision needs: Yes (Patient wears glasses.) Questionnaire PHQ-9 Over the last 2 weeks, how often have you been bothered by any of the following problems? 1. Little interest or pleasure in doing things: not at all 2. Feeling down, depressed, or hopeless: not at all 3. Trouble falling or staying asleep, or sleeping too much: several days 4. Feeling tired or having little energy: not at all 5. Poor appetite or overeating: not at all 6. Feeling bad about yourself - or that you are a failure or have let yourself or your family down: not at all 7. Trouble concentrating on things, such as reading the newspaper or watching television: not at all 8. Moving or speaking so slowly that other people could have noticed. Or the opposite - being so fidgety or restless that you have been moving around a lot more than usual: not at all 9. Thoughts that you would be better off or of hurting yourself in some way: not at all Total score: 1 Source: Developed by Drs. Leland Motta, Daisy Valencia, All [employer] and colleagues, with an educational lilliam from [employer]. Thrive Questionnaire Date Thrive assessed: 07/22/24 I am a: Patient What is your living situation today?: I have a steady place to live Within the past 12 months, did the food you bought not last and you didn't have the money to get more?: Never true Within the past 12 months, did you worry whether your food would run out before you got money to buy more?: Never true Do you have trouble paying for medicines?: No Do you have trouble getting transportation to medical appointments?: No Do you have trouble paying your heating and electricity bill?: No Do you have trouble taking care of your child, family member or friend?: No Do you have trouble with day-to-day activities such as bathing, preparing meals, shopping, managing finances, etc.?: No Are you currently unemployed and looking for a job?: No Are you interested in more education?: No Please select the resources that you would like help with: None Currently or been in a relationship where the following occur: I choose not to answer THRIVE Score: 0 AUDIT C Alcohol Use Questionnaire (AUDIT-C) 1. How often do you have a drink containing alcohol?: 2-3 times a week 2. How many drinks containing alcohol do you have on a typical day when you are drinking?: 1 or 2 3. How often do you have six or more drinks on one occasion?: Never Total Score: 3 CHARIS-7 AMB Questionnaire CHARIS-7 Date CHARIS - 7 assessed: 10/16/23 Feeling nervous, anxious, or on edge: 0 = Not at all Not being able to stop or control worryin = Not at all Worrying too much about different things: 0 = Not at all Trouble relaxin = Not at all Being so restless that it is hard to sit still: 0 = Not at all Becoming easily annoyed or irritable: 0 = Not at all Feeling afraid as if something awful might happen: 0 = Not at all Total CHARIS-7 score (0-4 normal; 5-9 mild; 10-14 moderate; 15-21 severe): 0 Source: Developed by Drs. Leland Motta, Daisy Valencia, All Turpin and colleagues, with an educational lilliam from [employer]. Review of Systems Const Denies chills, Denies fatigue, Denies fever(s), Denies headache(s) and Denies weakness ENT Denies dizziness and Denies headache(s) Card Denies chest pain, Denies lightheadedness, Denies dyspnea and Denies other (Palpitations) Resp Denies cough, Denies dyspnea, Denies wheezing and Denies other ( shortness of breath) Musc Denies numbness and Denies tingling Neuro Denies dizziness, Denies headache(s), Denies numbness, Denies tingling, Denies paresthesias and Denies weakness Psych Denies anxiety and Denies depression Endo Denies fatigue Aller/Immun Denies wheezing Physical exam (Primary Care) Vital Signs: Last Vital Signs Temp 98.8 F 07/29/24 11:31 Pulse 71 07/29/24 11:31 Resp 16 07/29/24 11:31 BP 120/70 07/29/24 11:31 Pulse Ox 95 07/29/24 11:31 Oxygen Delivery Method Room Air 07/29/24 11:31 BMI result Body Mass Index 29.7 Tobacco/Smoking Status: Tobacco use Status Tobacco use date assessed 02/05/24 07/29/24 11:32 Patient Tobacco Use Status Never used Tobacco 07/29/24 11:32 e-Cigarette/Vaping Use Never Used 07/29/24 11:32 PHQ-9: PHQ-9 Score PHQ-9: Total score 1 07/29/24 11:32 Thrive Assessment: Date of Thrive Assessment Date Thrive assessed 07/22/24 07/29/24 11:32 Currently or been in a relationship where the following occur: I choose not to answer Const General: no acute distress and well developed Nutritional Appearance: well nourished Orientation/consciousness: patient oriented x3 HENMT Head: Yes normocephalic and Yes atraumatic Eyes General: appearance normal, both eyes and all related structures Pupils: Equal, round and reactive pupils present EOM: EOMs intact bilaterally Resp Effort & Inspection: normal respiratory effort Auscultation: clear to auscultation bilaterally Cardio Rate: regular rate Rhythm: regular rhythm Heart sounds: S1 normal heart sound present, S2 normal heart sound present, no gallops, no murmurs and no rubs Neuro General: patient oriented x3 and gait normal Cranial nerves: Yes Equal, round and reactive pupils present Psych Affect: normal affect Coding Level of Care Code Est Pt Level 3 (64639) Diagnoses High blood pressure I10 Pre-diabetes R73.03 Assessment & Plan Assessment & Plan (1) High blood pressure: Code(s): I10 - Essential (primary) hypertension Category: Medical Plan: Blood?pressure?well?controlled.??Goal?is?less?than?130/80?for?patient?with?coronary?artery?disease Continue?current?medication (2) Pre-diabetes: Code(s): R73.03 - Prediabetes Category: Medical Plan: A1c?has?improved?from?5.8%?at?last?check?to 5.5%?today.??Goal?is?less?than?7%
[2024-07-29 11:31] VITALS: BP 120/70; PULSE 71; RESP 16; TEMP 37.1; O2SAT 95; BMI 29.7
== END 2024-07-29 12:00 | disposition home or self-care (01) ==
PROVIDERS: PCP Family Medicine; Visit Provider Family Medicine
DX: I10 Essential (primary) hypertension (principal); R73.03 Prediabetes

== ENCOUNTER → 2024-07-29 11:20 | Outpatient (BNVA) | payer OTHER, SELFPAY | PROVIDERS: PCP Family Medicine; Visit Provider Family Medicine | DX: I10 Essential (primary) hypertension (principal); R73.03 Prediabetes | CPT/HCPCS: 96127; 99212 ==

== ENCOUNTER 2024-08-20 08:42 | Outpatient (REF) | payer OTHER, SELFPAY ==
[2024-08-20 11:48] LABS: Cholesterol 161 mg/dL (<200); HDL Cholesterol 60 mg/dL (>40); LDL Cholesterol Calculated 82 mg/dL (<100); Triglycerides 97 mg/dL (<150)
[2024-08-20 12:14] LABS: Erythrocyte Sedimentation Rate 2 MM/HR (0-15)
== END 2024-08-20 08:43 | disposition home or self-care (01) ==
LOC: HO.WFDLDS 08:42
PROVIDERS: Visit Provider Physician Assistant Medical
DX: I25.10 Atherosclerotic heart disease of native coronary artery without angina pectoris (principal); M79.10 Myalgia, unspecified site
CPT/HCPCS: 36415; 80061; 85652; 86140

== ENCOUNTER 2024-11-11 09:27 | Outpatient (AMB) | payer MEDICARE, SELFPAY ==
--- NOTE | 2024-11-11 09:37 | A.OFFPC_ITS ---
Vital Signs 11/11/24 09:45 Height 5 ft 10 in Weight 211 lb BMI 30.3 BP 128/64 Blood Pressure Location Rt brachial Position Sitting Respiration 14 Pulse 79 Pulse Source Pulse Oximeter Temp 98.6 F Temp Source Oral Pulse Oximetry (%) 96 Oxygen Delivery Method Room Air Intake Visit Reasons: FU HTN, PreDM Intake Note: pt is here to follow up for htn and pre-dm Languages And Literature Instructor Required: No Allergies No Known Allergies Allergy (Verified 11/11/24 09:44) Medication List - Last Reconciled 11/11/24 by Getachew Vasquez MD aspirin 81 mg PO DAILY cholecalciferol (vitamin D3) 62.5 mcg PO DAILY 90 days coQ10 (ubiquinol) (Qunol Kuldip CoQ10) 100 mg PO BID fenofibrate 160 mg PO DAILY multivitamin 1 tab PO DAILY red yeast rice 600 mg PO DAILY Tobacco use date assessed: 02/05/24 Dental Screening Dental Screen Date: 02/05/24 HPI FU HTN, PreDM HPI Details 74 y/o male presents to f/u hypertension , pre-diabetes. Last A1c 07/29/24 5.5%. A1c today 11/11/24 is 5.7%. Blood pressure today 128/64, 79p. Hx of CAD. No longer on metoprolol 50mg, rosuvastatin 20mg. He states he feels better off his metoprolol. Has a blood pressure cuff at home. Last lipid panel drawn 08/20/24. Triglycerides 97. TC 161. LDL 82. HDL 60. Prescribed fenofibrate 160mg daily. He has been taking 80mg. He is on CoQ10, red yeast rice. He is reluctant to use statins due to its side effects. Has quit EtOH 6-7 weeks ago. He has been watching his diet. He has started exercising about a week ago. HPI Comments History of Present Illness Details Documentation assistance for Getachew Vasquez MD, was provided by Connor Zuñiga,? Registered Radiologic Technologist on 11/11/2024 at 9:48 AM EST. I, Dr. Vasquez, have read, observed, and verified documentation. ?? [facility] Medical History (Updated 04/28/24 @ 12:20 by Connor Zuñiga) Hernia Back pain Arthritis High blood pressure Arterial stent thrombosis Surgical History (Updated 02/27/24 @ 09:16 by Katie Andujar CMA) H/O right wrist surgery History of hip surgery Family History Mother High cholesterol Skin cancer Father Asthma Leukemia Alcoholism Social History Housing: Apartment Patient Tobacco Use Status: Never used Tobacco e-Cigarette/Vaping Use: Never Used service: No Current occupational status: retired Cognitive needs: No Hearing needs: Yes Vision needs: Yes (Patient wears glasses.) Questionnaire PHQ-9 Over the last 2 weeks, how often have you been bothered by any of the following problems? 1. Little interest or pleasure in doing things: not at all 2. Feeling down, depressed, or hopeless: not at all 3. Trouble falling or staying asleep, or sleeping too much: not at all 4. Feeling tired or having little energy: not at all 5. Poor appetite or overeating: not at all 6. Feeling bad about yourself - or that you are a failure or have let yourself or your family down: not at all 7. Trouble concentrating on things, such as reading the newspaper or watching television: not at all 8. Moving or speaking so slowly that other people could have noticed. Or the opposite - being so fidgety or restless that you have been moving around a lot more than usual: not at all 9. Thoughts that you would be better off or of hurting yourself in some way: not at all Total score: 0 Source: Developed by Drs. Leland Motta, Daisy Valencia, All Turpin and colleagues, with an educational lilliam from [employer]. Thrive Questionnaire Date Thrive assessed: 11/09/24 I am a: Patient What is your living situation today?: I have a steady place to live Within the past 12 months, did the food you bought not last and you didn't have the money to get more?: Never true Within the past 12 months, did you worry whether your food would run out before you got money to buy more?: Never true Do you have trouble paying for medicines?: No Do you have trouble getting transportation to medical appointments?: No Do you have trouble paying your heating and electricity bill?: No Do you have trouble taking care of your child, family member or friend?: No Do you have trouble with day-to-day activities such as bathing, preparing meals, shopping, managing finances, etc.?: No Are you currently unemployed and looking for a job?: No Are you interested in more education?: No Please select the resources that you would like help with: None Currently or been in a relationship where the following occur: I choose not to answer THRIVE Score: 0 AUDIT C Alcohol Use Questionnaire (AUDIT-C) 1. How often do you have a drink containing alcohol?: Never 3. How often do you have six or more drinks on one occasion?: Never Total Score: 0 CHARIS-7 AMB Questionnaire CHARIS-7 Date CHARIS - 7 assessed: 10/16/23 Feeling nervous, anxious, or on edge: 0 = Not at all Not being able to stop or control worryin = Not at all Worrying too much about different things: 0 = Not at all Trouble relaxin = Not at all Being so restless that it is hard to sit still: 0 = Not at all Becoming easily annoyed or irritable: 0 = Not at all Feeling afraid as if something awful might happen: 0 = Not at all Total CHARIS-7 score (0-4 normal; 5-9 mild; 10-14 moderate; 15-21 severe): 0 Source: Developed by Drs. Leland Motta, Daisy Valencia, All Turpin and colleagues, with an educational lilliam from [employer]. Review of Systems Const Denies chills, Denies fatigue, Denies fever(s), Denies headache(s) and Denies weakness ENT Denies dizziness and Denies headache(s) Card Denies dyspnea Resp Denies cough, Denies dyspnea, Denies wheezing and Denies other (shortness of breath) Musc Denies numbness and Denies tingling Neuro Denies dizziness, Denies headache(s), Denies numbness, Denies tingling and Denies weakness Psych Denies anxiety and Denies depression Endo Denies fatigue Aller/Immun Denies wheezing Physical exam (Primary Care) Vital Signs: Last Vital Signs Temp 98.6 F 11/11/24 09:45 Pulse 79 11/11/24 09:45 Resp 14 11/11/24 09:45 BP 128/64 11/11/24 09:45 Pulse Ox 96 11/11/24 09:45 Oxygen Delivery Method Room Air 11/11/24 09:45 BMI result Body Mass Index 30.3 Tobacco/Smoking Status: Tobacco use Status Tobacco use date assessed 02/05/24 11/11/24 09:39 Patient Tobacco Use Status Never used Tobacco 11/11/24 09:39 e-Cigarette/Vaping Use Never Used 11/11/24 09:39 PHQ-9: PHQ-9 Score PHQ-9: Total score 0 11/11/24 09:49 Thrive Assessment: Date of Thrive Assessment Date Thrive assessed 11/09/24 11/11/24 09:39 Currently or been in a relationship where the following occur: I choose not to answer Const General: well developed; No acute distress Nutritional Appearance: well nourished Orientation/consciousness: patient oriented x3 HENMT Head: Yes normocephalic and Yes atraumatic Eyes General: appearance normal, both eyes and all related structures Pupils: Equal, round and reactive pupils present EOM: EOMs intact bilaterally Resp Effort & Inspection: normal respiratory effort Auscultation: clear to auscultation bilaterally Cardio Rate: regular rate Rhythm: regular rhythm Heart sounds: S1 normal heart sound present, S2 normal heart sound present, no gallops, no murmurs and no rubs Neuro General: patient oriented x3 and gait normal Cranial nerves: Yes Equal, round and reactive pupils present Psych Affect: normal affect Coding Level of Care Code Est Pt Level 4 (26774) Diagnoses High blood pressure I10 Coronary artery disease I25.10 Hyperlipidemia E78.5 Pre-diabetes R73.03 Assessment & Plan Assessment & Plan (1) High blood pressure: Code(s): I10 - Essential (primary) hypertension Category: Medical Plan: Blood?pressure?remains?controlled?and?at?goal?of?less?than?130/80 Patient?has?discontinued?metoprolol. Continue?diet?control?and?exercise Will?continue?to?monitor He?has?a?blood?pressure?monitor?at?home?as?well (2) Coronary artery disease: Code(s): I25.10 - Atherosclerotic heart disease of [place] coronary artery without angina pectoris Category: Medical Plan: Stable Patient?has?discontinued?rosuvastatin?as?it?was?causing?achy?muscles.??He?is?usi ng?red?yeast?rice?and?Co?Q10. He?is?also?on?fenofibrate?for?hypertriglyceridemia His?most?recent?lab?work?shows?that?his?LDL?cholesterol?is?83; approaching?goal?but?still?above?goal?of?less?than?70?for?a?patient?with?coronar y?artery?disease Continue?Co?Q10?and?red?yeast?rice.??Continue?fenofibrate. Continue?diet?low?in?saturated?fats?cholesterol We?will?recheck?lipids?prior?to?his?next?visit?and?discuss (3) Hyperlipidemia: Code(s): E78.5 - Hyperlipidemia, unspecified Category: Medical Plan: As?above (4) Pre-diabetes: Code(s): R73.03 - Prediabetes Category: Medical Plan: A1c?in?low?pre?diabetes?range. Up?from?5.5%?last?check. Continue diet?low?in?sugars?and?starches Will?continue?to?monitor Orders: Orders Lipid Panel Today I25.10 - Atherosclerotic heart disease of [place] coronary artery without angina pectoris, Z00.00 - Encounter for general adult medical examination without abnormal findings Comprehensive [place]. Panel Fast Today I25.10 - Atherosclerotic heart disease of [place] coronary artery without angina pectoris, Z00.00 - Encounter for general adult medical examination without abnormal findings
[2024-11-11 09:45] VITALS: BP 128/64; PULSE 79; RESP 14; TEMP 37; O2SAT 96; BMI 30.3
== END 2024-11-11 10:12 | disposition home or self-care (01) ==
PROVIDERS: PCP Family Medicine; Visit Provider Family Medicine
DX: I10 Essential (primary) hypertension (principal); I25.10 Atherosclerotic heart disease of native coronary artery without angina pectoris; E78.5 Hyperlipidemia, unspecified; R73.03 Prediabetes

== ENCOUNTER → 2024-11-11 09:27 | Outpatient (BNVA) | payer MEDICARE, SELFPAY | PROVIDERS: PCP Family Medicine; Visit Provider Family Medicine | DX: I10 Essential (primary) hypertension (principal); I25.10 Atherosclerotic heart disease of native coronary artery without angina pectoris; E78.5 Hyperlipidemia, unspecified; R73.03 Prediabetes | CPT/HCPCS: 83036; 99212 ==

== ENCOUNTER 2025-02-08 09:22 | Outpatient (REF) | payer MEDICARE, SELFPAY ==
[2025-02-08 12:21] LABS: Alanine Aminotransferase 18 U/L (0-40); Albumin Level 4.2 g/dL (3.5-5.0); Alkaline Phosphatase 44 U/L (39-117); Anion Gap 11 (12-20); Aspartate Amino Transferase 21 U/L (5-37); Bilirubin Total 0.6 mg/dL (0.0-1.0); Blood Urea Nitrogen 13 mg/dL (9-16); Calcium 9.4 mg/dL (8.4-10.2); Carbon Dioxide 27 mmol/L (22-29); Chloride 106 mmol/L (96-108); Cholesterol 237 mg/dL (<200); Estimated Glomerular Filt Rate > 60; Glucose Fasting 104 mg/dL (60-99); HDL Cholesterol 51 mg/dL (>40); LDL Cholesterol Calculated 145 mg/dL (<100); Sodium 140 mmol/L (135-145); Total Protein 6.9 g/dL (6.5-8.0); Triglycerides 209 mg/dL (<150)
== END 2025-02-08 09:23 | disposition home or self-care (01) ==
LOC: HO.WFDLDS 09:22
PROVIDERS: Visit Provider Family Medicine
DX: Z00.00 Encounter for general adult medical examination without abnormal findings (principal); I25.10 Atherosclerotic heart disease of native coronary artery without angina pectoris; I10 Essential (primary) hypertension
CPT/HCPCS: 36415; 80053; 80061

== ENCOUNTER 2025-03-04 11:18 | Outpatient (AMB) | payer MEDICARE, SELFPAY ==
--- NOTE | 2025-03-04 11:38 | A.OFFPC_ITS ---
Vital Signs 03/04/25 11:43 03/04/25 11:46 Height 5 ft 10 in Weight 204 lb 4 oz BMI 29.3 BP 150/80 H 136/80 Blood Pressure Location Rt brachial Rt brachial Position Sitting Sitting Respiration 16 Pulse 71 Pulse Source Pulse Oximeter Temp 99.0 F Temp Source Oral Pulse Oximetry (%) 97 Oxygen Delivery Method Room Air Intake Visit Reasons: f/u HTN, preDM, HLD Intake Note: patient is scheduled for htn pre-dm and lab review System Support Technician Required: No Allergies No Known Allergies Allergy (Verified 03/04/25 11:42) Medication List - Last Reconciled 03/04/25 by Getachew Vasquez MD aspirin 81 mg PO DAILY cholecalciferol (vitamin D3) 62.5 mcg PO DAILY 90 days coQ10 (ubiquinol) (Qunol Kuldip CoQ10) 100 mg PO BID multivitamin 1 tab PO DAILY red yeast rice 600 mg PO DAILY Tobacco use date assessed: 02/05/24 Dental Screening Dental Screen Date: 02/05/24 HPI f/u HTN, preDM, HLD HPI Details 74 y/o male presents to f/u HTN, pre-domenico betes, HLD. Diet controlled hypertension. Labs drawn 02/08/25. Reviewed labs with pt. Fasting glucose 104. Triglycerides 209. TC 237. LDL 145. HDL 51. He is on fenofibrate 160mg daily. Last A1c 11/11/24 5.7%. A1c today 5.8%. BP today 136/80. [facility] Medical History (Updated 03/04/25 @ 12:09 by Connor Zuñiga) Hernia Back pain Arthritis High blood pressure Arterial stent thrombosis Surgical History (Updated 02/27/24 @ 09:16 by Katie Andujar CMA) H/O right wrist surgery History of hip surgery Family History Mother High cholesterol Skin cancer Father Asthma Leukemia Alcoholism Social History Housing: Apartment Patient Tobacco Use Status: Never used Tobacco e-Cigarette/Vaping Use: Never Used service: No Current occupational status: retired Cognitive needs: No Hearing needs: Yes Vision needs: Yes (Patient wears glasses.) Questionnaire Thrive Questionnaire Date Thrive assessed: 11/09/24 I am a: Patient What is your living situation today?: I have a steady place to live Within the past 12 months, did the food you bought not last and you didn't have the money to get more?: Never true Within the past 12 months, did you worry whether your food would run out before you got money to buy more?: Never true Do you have trouble paying for medicines?: No Do you have trouble getting transportation to medical appointments?: No Do you have trouble paying your heating and electricity bill?: No Do you have trouble taking care of your child, family member or friend?: No Do you have trouble with day-to-day activities such as bathing, preparing meals, shopping, managing finances, etc.?: No Are you currently unemployed and looking for a job?: No Are you interested in more education?: No Please select the resources that you would like help with: None Currently or been in a relationship where the following occur: I choose not to answer THRIVE Score: 0 CHARIS-7 AMB Questionnaire CHARIS-7 Date CHARIS - 7 assessed: 10/16/23 Source: Developed by Drs. Leland Motta, Daisy Valencia, All Turpin and colleagues, with an educational lilliam from [email or web address]. Review of Systems Const Denies chills, Denies fatigue, Denies fever(s), Denies headache(s) and Denies weakness ENT Denies dizziness and Denies headache(s) Card Denies dyspnea Resp Denies cough, Denies dyspnea, Denies wheezing and Denies other (shortness of breath) Musc Denies numbness and Denies tingling Neuro Denies dizziness, Denies headache(s), Denies numbness, Denies tingling and Denies weakness Psych Denies anxiety and Denies depression Endo Denies fatigue Aller/Immun Denies wheezing Physical exam (Primary Care) Vital Signs: Last Vital Signs Temp 99.0 F 03/04/25 11:43 Pulse 71 03/04/25 11:43 Resp 16 03/04/25 11:43 BP 136/80 03/04/25 11:46 Pulse Ox 97 03/04/25 11:43 Oxygen Delivery Method Room Air 03/04/25 11:43 BMI result Body Mass Index 29.3 Tobacco/Smoking Status: Tobacco use Status Tobacco use date assessed 02/05/24 03/04/25 11:38 Patient Tobacco Use Status Never used Tobacco 03/04/25 11:38 e-Cigarette/Vaping Use Never Used 03/04/25 11:38 Thrive Assessment: Date of Thrive Assessment Date Thrive assessed 11/09/24 03/04/25 11:38 Currently or been in a relationship where the following occur: I choose not to answer Const General: well developed; No acute distress Nutritional Appearance: well nourished Orientation/consciousness: patient oriented x3 HENMT Head: Yes normocephalic and Yes atraumatic Eyes General: appearance normal, both eyes and all related structures Pupils: Equal, round and reactive pupils present EOM: EOMs intact bilaterally Resp Effort & Inspection: normal respiratory effort Neuro General: patient oriented x3 and gait normal Cranial nerves: Yes Equal, round and reactive pupils present Psych Affect: normal affect Coding Level of Care Code Est Pt Level 4 (16479) Diagnoses High blood pressure I10 Coronary artery disease I25.10 Hyperlipidemia E78.5 Pre-diabetes R73.03 Cystic acne L70.0 Assessment & Plan Assessment & Plan (1) High blood pressure: Code(s): I10 - Essential (primary) hypertension Category: Medical Plan: Blood?pressure?is?fairly?well?controlled?after ?relaxation.??Goal?is?less?than?130/80 He?had?been?on?metoprolol?and?discontinue?this?due?to?achiness?and?fatigue?which ?have?improved Will?continue?to?monitor (2) Coronary artery disease: Code(s): I25.10 - Atherosclerotic heart disease of [place] coronary artery without angina pectoris Category: Medical Plan: LDL?cholesterol?is?too?high.??Goal?is?less?than?70 Triglycerides?are?elevated?as?well. He?has?had?achy?muscles?and?discontinue?rosuvastatin?and?also?fenofibrate Will?have?him?try?pravastatin?10?mg?and?also?Zetia Continue?Co?Q10.??He?has?been?taking?red?yeast?rice?which?is?not?getting?him?annia sely?not?to?goal.??He?will?discontinue?this?for?now. Recheck?lipids?in?a?few?months (3) Hyperlipidemia: Code(s): E78.5 - Hyperlipidemia, unspecified Category: Medical Plan: As?above (4) Pre-diabetes: Code(s): R73.03 - Prediabetes Category: Medical Plan: A1c?jared?from?5.5%?to?5.8% Encouraged?diet?lower?in?sugars?and?starches (5) Cystic acne: Code(s): L70.0 - Acne vulgaris Category: Medical Plan: Use?an?antibacterial?facial?cleanser Has?some?cyst?behind?his?ear?and?I?recommended?warm?compresses. Has?what?may?be?an?excoriated?cyst?on?his?forehead?with?small?hematoma.??However ,?I?adv ised?that?if?this?is?not?resolving?with?warm?compresses?in?a?month?he?will?let?k now. Orders: Orders Comprehensive [place]. Panel Fast Today E78.5 - Hyperlipidemia, unspecified, Z00.00 - Encounter for general adult medical examination without abnormal findings Lipid Panel Today E78.5 - Hyperlipidemia, unspecified, Z00.00 - Encounter for general adult medical examination without abnormal findings Medications: New pravastatin 10 mg PO BEDTIME 90 tabs 3RF 90 days ezetimibe (Zetia) 10 mg PO DAILY 90 tabs 3RF 90 days
[2025-03-04 11:43] VITALS: BP 150/80; PULSE 71; RESP 16; TEMP 37.2; O2SAT 97; BMI 29.3
[2025-03-04 11:46] VITALS: BP 136/80
== END 2025-03-04 12:11 | disposition home or self-care (01) ==
LOC: HO.HMCFM 11:19
PROVIDERS: PCP Family Medicine; Visit Provider Family Medicine
DX: I10 Essential (primary) hypertension (principal); I25.10 Atherosclerotic heart disease of native coronary artery without angina pectoris; E78.5 Hyperlipidemia, unspecified; R73.03 Prediabetes; L70.0 Acne vulgaris

== ENCOUNTER → 2025-03-04 11:18 | Outpatient (BNVA) | payer MEDICARE, SELFPAY | PROVIDERS: PCP Family Medicine; Visit Provider Family Medicine | DX: I10 Essential (primary) hypertension (principal); I25.10 Atherosclerotic heart disease of native coronary artery without angina pectoris; R73.03 Prediabetes; E78.5 Hyperlipidemia, unspecified; L70.0 Acne vulgaris | CPT/HCPCS: 83036; 99212 ==

== ENCOUNTER 2025-06-01 09:35 | Outpatient (REF) | payer MEDICARE, SELFPAY ==
[2025-06-01 13:41] LABS: Alanine Aminotransferase 18 U/L (0-40); Albumin Level 4.2 g/dL (3.5-5.0); Alkaline Phosphatase 56 U/L (39-117); Anion Gap 9 (12-20); Aspartate Amino Transferase 27 U/L (5-37); Blood Urea Nitrogen 14 mg/dL (9-16); Calcium 9.1 mg/dL (8.4-10.2); Carbon Dioxide 28 mmol/L (22-29); Chloride 109 mmol/L (96-108); Cholesterol 232 mg/dL (<200); Estimated Glomerular Filt Rate > 60; HDL Cholesterol 39 mg/dL (>40); Potassium 4.5 mmol/L (3.3-5.1); Sodium 141 mmol/L (135-145); Total Protein 6.9 g/dL (6.5-8.0); Triglycerides 351 mg/dL (<150)
== END 2025-06-01 09:36 | disposition home or self-care (01) ==
LOC: HO.WFDLDS 09:35
PROVIDERS: Visit Provider Family Medicine
DX: Z00.00 Encounter for general adult medical examination without abnormal findings (principal); E78.5 Hyperlipidemia, unspecified
CPT/HCPCS: 36415; 80053; 80061

== ENCOUNTER 2025-06-07 08:46 | Outpatient (AMB) | payer MEDICARE, SELFPAY ==
--- NOTE | 2025-06-07 08:53 | MHC.PC.OV ---
Vital Signs 06/07/25 08:57 06/07/25 09:04 Height 5 ft 10 in Weight 204 lb BMI 29.3 BP 148/92 H 146/92 H Blood Pressure Location Lt brachial Lt brachial Position Sitting Sitting Pulse 67 Pulse Source Pulse Oximeter Temp 97.8 F Temp Source Oral Pulse Oximetry (%) 95 Oxygen Delivery Method Room Air Intake Visit Reasons: f/u HLD, chronic conditions Intake Note: Follow up. Diagnosed with covid on 05/10/2025. Still having low engery. Qm Consultant Required: No Allergies No Known Allergies Allergy (Verified 06/07/25 08:53) Medication List - Last Reconciled 06/07/25 by Getachew Vasquez MD aspirin 81 mg PO DAILY cholecalciferol (vitamin D3) 62.5 mcg PO DAILY 90 days coQ10 (ubiquinol) (Qunol Kuldip CoQ10) 100 mg PO BID multivitamin 1 tab PO DAILY pravastatin 10 mg PO BEDTIME 90 days Tobacco use date assessed: 06/07/25 Fall risk assessment: No Falls in past year Last assessed Fall Risk: 06/07/25 Dental Screening Dental Screen Date: 06/07/25 Did you have a dental visit in the last 12 months?: Yes Did you have a dental problem in the last 6 months where you did not have access to dental care?: No Was dental information given to patient?: Patient has dentist HPI f/u HLD, chronic conditions HPI Details 74 y/o male presents to f/u HLD, prediabetes. A1c today 06/07/25 5.7%. Labs drawn 06/01/25. Reviewed labs with pt. Triglycerides 351. TC 232. LDL 123. HDL low at 39. He is on pravastatin 10mg. Blood pressure today 146/92, 67p. [facility] Medical History (Updated 03/04/25 @ 12:09 by Connor Zuñiga) Hernia Back pain Arthritis High blood pressure Arterial stent thrombosis Surgical History H/O right wrist surgery History of hip surgery Family History Mother High cholesterol Skin cancer Father Asthma Leukemia Alcoholism Social History (Updated 06/07/25 @ 09:06 by Carrie Paulino CMA) Housing: Apartment Alcohol intake: current Patient Tobacco Use Status: Never used Tobacco e-Cigarette/Vaping Use: Never Used service: No Current occupational status: retired Cognitive needs: No Hearing needs: Yes Vision needs: Yes (Patient wears glasses.) Questionnaire Thrive Questionnaire Date Thrive assessed: 11/09/24 I am a: Patient What is your living situation today?: I have a steady place to live Within the past 12 months, did the food you bought not last and you didn't have the money to get more?: Never true Within the past 12 months, did you worry whether your food would run out before you got money to buy more?: Never true Do you have trouble paying for medicines?: No Do you have trouble getting transportation to medical appointments?: No Do you have trouble paying your heating and electricity bill?: No Do you have trouble taking care of your child, family member or friend?: No Do you have trouble with day-to-day activities such as bathing, preparing meals, shopping, managing finances, etc.?: No Are you currently unemployed and looking for a job?: No Are you interested in more education?: No Please select the resources that you would like help with: None Currently or been in a relationship where the following occur: I choose not to answer THRIVE Score: 0 AUDIT C Alcohol Use Questionnaire (AUDIT-C) 1. How often do you have a drink containing alcohol?: 4 or more times a week 2. How many drinks containing alcohol do you have on a typical day when you are drinking?: 1 or 2 3. How often do you have six or more drinks on one occasion?: Never Total Score: 4 CHARIS-7 AMB Questionnaire CHARIS-7 Date CHARIS - 7 assessed: 10/16/23 Source: Developed by Drs. Leland Motta, Daisy Valencia, All Turpin and colleagues, with an educational lilliam from [employer]. Review of Systems Const Denies chills, Denies fatigue, Denies fever(s), Denies headache(s) and Denies weakness ENT Denies dizziness and Denies headache(s) Card Denies dyspnea Resp Denies cough, Denies dyspnea, Denies wheezing and Denies other (shortness of breath) Musc Denies numbness and Denies tingling Neuro Denies dizziness, Denies headache(s), Denies numbness, Denies tingling and Denies weakness Psych Denies anxiety and Denies depression Endo Denies fatigue Aller/Immun Denies wheezing Physical exam (Primary Care) Vital Signs: Last Vital Signs Temp 97.8 F 06/07/25 08:57 Pulse 67 06/07/25 08:57 BP 146/92 H 06/07/25 09:04 Pulse Ox 95 06/07/25 08:57 Oxygen Delivery Method Room Air 06/07/25 08:57 BMI result Body Mass Index 29.3 Tobacco/Smoking Status: Tobacco use Status Tobacco use date assessed 06/07/25 06/07/25 09:01 Patient Tobacco Use Status Never used Tobacco 06/07/25 09:06 e-Cigarette/Vaping Use Never Used 06/07/25 09:06 Thrive Assessment: Date of Thrive Assessment Date Thrive assessed 11/09/24 06/07/25 08:55 Currently or been in a relationship where the following occur: I choose not to answer Const General: well developed; No acute distress Nutritional Appearance: well nourished Orientation/consciousness: patient oriented x3 HENMT Head: Yes normocephalic and Yes atraumatic Eyes General: appearance normal, both eyes and all related structures Pupils: Equal, round and reactive pupils present EOM: EOMs intact bilaterally Resp Effort & Inspection: normal respiratory effort Auscultation: clear to auscultation bilaterally Cardio Rate: regular rate Rhythm: regular rhythm Heart sounds: S1 normal heart sound present, S2 normal heart sound present, no gallops, no murmurs and no rubs Neuro General: patient oriented x3 and gait normal Cranial nerves: Yes Equal, round and reactive pupils present Psych Affect: normal affect Results AMB Hemoglobin A1c AMB Hemoglobin A1c 5.7 % Last Edit by Carrie Paulino CMA on 06/07/25 09:09 Results Reviewed Results Reviewed: Laboratory Last Values Hgb A1c (Clinic) 5.7 % (4.0-6.0) 06/07/25 09:05 Coding Level of Care Code Est Pt Level 4 (39858) Diagnoses Hyperlipidemia E78.5 Coronary artery disease I25.10 High blood pressure I10 Pre-diabetes R73.03 Assessment & Plan Assessment & Plan (1) Hyperlipidemia: Code(s): E78.5 - Hyperlipidemia, unspecified Category: Medical Plan: LDL improved on pravastatin He has had problems with statins in the past. Could not tolerate rosuvastatin. He is taking pravastatin and Co Q10 and tolerating this. Will add Zetia. We discussed that goal is LDL cholesterol less than 70. He will hopefully get below 100 with addition of Zetia May need to adjust pravastatin further. 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 (2) Coronary artery disease: Code(s): I25.10 - Atherosclerotic heart disease of [place] coronary artery without angina pectoris Category: Medical Plan: Stable Follow-up with Cardiology as recommended (3) High blood pressure: Code(s): I10 - Essential (primary) hypertension Category: Medical Plan: Blood pressures are still too high. Goal is less than 130/80 Adding losartan. He did not tolerate metoprolol in the past due to fatigue and some dizziness. He will let me know if he has any problems with losartan. (4) Pre-diabetes: Code(s): R73.03 - Prediabetes Category: Medical Plan: A1c decreased from 5.8% to 5.7%. Still in low pre diabetes range. Encouraged diet lower in sugars and starches Will continue to monitor Orders: Orders AMB Hemoglobin A1c Today R73.03 - Prediabetes Lipid Panel Today Z00.00 - Encounter for general adult medical examination without abnormal findings Comprehensive [place]. Panel Fast Today Z00.00 - Encounter for general adult medical examination without abnormal findings Hemoglobin A1c Today R73.01 - Impaired fasting glucose Medications: New losartan 50 mg PO DAILY 90 tabs 3RF 90 days ezetimibe (Zetia) 10 mg PO DAILY 90 tabs 3RF 90 days
[2025-06-07 08:57] VITALS: BP 148/92; PULSE 67; TEMP 36.6; O2SAT 95; BMI 29.3
[2025-06-07 09:04] VITALS: BP 146/92
== END 2025-06-07 09:37 | disposition home or self-care (01) ==
LOC: HO.HMCFM 08:46
PROVIDERS: PCP Family Medicine; Visit Provider Family Medicine
DX: E78.5 Hyperlipidemia, unspecified (principal); I25.10 Atherosclerotic heart disease of native coronary artery without angina pectoris; I10 Essential (primary) hypertension; R73.03 Prediabetes

== ENCOUNTER → 2025-06-07 08:46 | Outpatient (BNVA) | payer MEDICARE, SELFPAY | PROVIDERS: PCP Family Medicine; Visit Provider Family Medicine | DX: I25.10 Atherosclerotic heart disease of native coronary artery without angina pectoris (principal); E78.5 Hyperlipidemia, unspecified; R73.03 Prediabetes; I10 Essential (primary) hypertension | CPT/HCPCS: 83036; 99212 ==

== ENCOUNTER 2025-06-17 15:54 | Outpatient (AMB) | payer MEDICARE, SELFPAY ==
--- NOTE | 2025-06-17 15:57 | A.OFFPC_ITS ---
Vital Signs 06/17/25 16:00 Height 5 ft 10 in Weight 203 lb 4 oz BMI 29.2 BP 127/69 Blood Pressure Location Lt brachial Position Sitting Respiration 12 Pulse 85 Pulse Source Pulse Oximeter Temp 97.9 F Temp Source Temporal Artery Scan Pulse Oximetry (%) 96 Oxygen Delivery Method Room Air Intake Visit Reasons: CPE Intake Note: CPE. Dance Master Required: No Allergies No Known Allergies Allergy (Verified 06/17/25 15:58) Tobacco use date assessed: 06/17/25 Fall risk assessment: No Falls in past year Last assessed Fall Risk: 06/17/25 Dental Screening Dental Screen Date: 06/17/25 Did you have a dental visit in the last 12 months?: Yes Did you have a dental problem in the last 6 months where you did not have access to dental care?: No Was dental information given to patient?: Patient has dentist HPI CPE HPI Details 75 y/o male presents for a CPE with f/u labs and health maintenance. Labs drawn 06/01/25. Reviewed labs with pt. A1c 5.7%. Triglycerides 351. TC 232. LDL 123. HDL low at 39. He is on Zetia 10mg, pravastatin 10mg. BP today 127/69, 85p. He is on losartan 50mg daily. HPI Comments History of Present Illness Details Documentation assistance for Getachew Vasquez MD, was provided by Connor Zuñiga, Alley Cleaner on 06/17/2025 at 4:18 PM EST. I, Dr. Vasquez, have read, observed, and verified documentation. COUNTS INCLUDE 234 BEDS AT THE [facility] Medical History (Updated 06/17/25 @ 16:37 by Connor Zuñiga) Hernia Back pain Arthritis High blood pressure Arterial stent thrombosis Surgical History H/O right wrist surgery History of hip surgery Family History Mother High cholesterol Skin cancer Father Asthma Leukemia Alcoholism Social History (Updated 06/07/25 @ 09:06 by Carrie Paulino CMA) Housing: Apartment Alcohol intake: current Patient Tobacco Use Status: Never used Tobacco e-Cigarette/Vaping Use: Never Used Second Hand Smoke Exposure: No service: No Current occupational status: retired Cognitive needs: No Hearing needs: Yes Vision needs: Yes (Patient wears glasses.) Questionnaire PHQ-9 Over the last 2 weeks, how often have you been bothered by any of the following problems? 1. Little interest or pleasure in doing things: not at all 2. Feeling down, depressed, or hopeless: not at all 3. Trouble falling or staying asleep, or sleeping too much: not at all 4. Feeling tired or having little energy: not at all 5. Poor appetite or overeating: not at all 6. Feeling bad about yourself - or that you are a failure or have let yourself or your family down: not at all 8. Moving or speaking so slowly that other people could have noticed. Or the opposite - being so fidgety or restless that you have been moving around a lot more than usual: not at all 9. Thoughts that you would be better off or of hurting yourself in some way: not at all Depression Screening Interpretation: Negative Depression Screening Done: Yes 88318 - PHQ-9 Billing: Yes Source: Developed by Drs. Leland Motta, Daisy Valencia, All Turpin and colleagues, with an educational lilliam from [employer]. Thrive Questionnaire Date Thrive assessed: 06/17/25 I am a: Patient What is your living situation today?: I have a steady place to live Within the past 12 months, did the food you bought not last and you didn't have the money to get more?: Never true Within the past 12 months, did you worry whether your food would run out before you got money to buy more?: Never true Do you have trouble paying for medicines?: No Do you have trouble getting transportation to medical appointments?: No Do you have trouble paying your heating and electricity bill?: No Do you have trouble taking care of your child, family member or friend?: No Do you have trouble with day-to-day activities such as bathing, preparing meals, shopping, managing finances, etc.?: No Are you currently unemployed and looking for a job?: No Are you interested in more education?: No Please select the resources that you would like help with: None Currently or been in a relationship where the following occur: I choose not to answer THRIVE Score: 0 AUDIT C Alcohol Use Questionnaire (AUDIT-C) 2. How many drinks containing alcohol do you have on a typical day when you are drinking?: 1 or 2 Total Score: 0 CHARIS-7 AMB Questionnaire CHARIS-7 Date CHARIS - 7 assessed: 06/17/25 Feeling nervous, anxious, or on edge: 0 = Not at all Not being able to stop or control worryin = Not at all Worrying too much about different things: 0 = Not at all Trouble relaxin = Not at all Being so restless that it is hard to sit still: 0 = Not at all Becoming easily annoyed or irritable: 0 = Not at all Feeling afraid as if something awful might happen: 0 = Not at all Total CHARIS-7 score (0-4 normal; 5-9 mild; 10-14 moderate; 15-21 severe): 0 Source: Developed by Drs. Leland Motta, Daisy Valencia, All Turpin and colleagues, with an educational lilliam from [employer]. CHARIS-7 Assessment Billing CHARIS-7 Assessment Tool: CHARIS-7 Assessment 40171 Physical exam (Primary Care) Vital Signs: Last Vital Signs Temp 97.9 F 06/17/25 16:00 Pulse 85 06/17/25 16:00 Resp 12 06/17/25 16:00 BP 127/69 06/17/25 16:00 Pulse Ox 96 06/17/25 16:00 Oxygen Delivery Method Room Air 06/17/25 16:00 BMI result Body Mass Index 29.2 Tobacco/Smoking Status: Tobacco use Status Tobacco use date assessed 06/17/25 06/17/25 16:03 Patient Tobacco Use Status Never used Tobacco 06/17/25 16:03 e-Cigarette/Vaping Use Never Used 06/17/25 16:03 Depression Screening Interpretation: Negative Thrive Assessment: Date of Thrive Assessment Date Thrive assessed 06/17/25 06/17/25 16:03 Currently or been in a relationship where the following occur: I choose not to answer Coding Level of Care Code Est Pt Level 4 (80744) Diagnoses High blood pressure I10 Coronary artery disease I25.10 Hyperlipidemia E78.5 Pre-diabetes R73.03 Screening for colon cancer Z12.11 Screening for prostate cancer Z12.5 Arm pain M79.603 Adult general medical exam Z00.00 Additional Codes CHARIS-7 Assessment Billing - CHARIS-7 Assessment Tool: CHARIS-7 Assessment 10016 ([id number]) PHQ-9 - 17202 - PHQ-9 Billing: Yes ([id number]) Assessment & Plan Assessment & Plan (1) High blood pressure: Code(s): I10 - Essential (primary) hypertension Category: Medical Plan: Blood pressure is now well controlled. Goal is less than 130/80 Continue current medication (2) Coronary artery disease: Code(s): I25.10 - Atherosclerotic heart disease of [place] coronary artery without angina pectoris Category: Medical Plan: He is stable (3) Hyperlipidemia: Code(s): E78.5 - Hyperlipidemia, unspecified Category: Medical Plan: Gave patient a script for Zetia at his last visit He does note some achy muscles though he says for the last few days it has discontinued He can continue Co Q10 and hopefully he will be able to continue this medication Will recheck labs prior to his next visit (4) Pre-diabetes: Code(s): R73.03 - Prediabetes Category: Medical Plan: A1c 5.7%. Pre diabetes range Continue working on a diet low in sugars and starches He does note that he uses some new go honey to decrease throat irritation. Only using about a tsp per day Advised him to compensate with decreased sugars and starches at other times of his day (5) Screening for colon cancer: Code(s): Z12.11 - Encounter for screening for malignant neoplasm of colon Category: Medical Plan: Patient has not had a colonoscopy in the past 10 years He does note that he was told he had some polyps Referred to Gastroenterology (6) Screening for prostate cancer: Code(s): Z12.5 - Encounter for screening for malignant neoplasm of prostate Category: Medical Plan: PSA is ordered and we can follow-up at his next visit (7) Arm pain: Code(s): M79.603 - Pain in arm, unspecified Category: Medical Plan: Left shoulder pain. History of torn rotator cuff and he never had surgery on this. Advised passive [id number]-dy-wokleh exercises (8) Adult general medical exam: Code(s): Z00.00 - Encounter for general adult medical examination without abnormal findings Category: Medical Plan: 75-year-old male presents for an extended exam Encouraged healthy diet with active lifestyle and plenty of exercise as tolerated Orders: Orders Comprehensive [place]. Panel Fast Today Z00.00 - Encounter for general adult medical examination without abnormal findings Prostate Specific Antigen Scr Today Z12.5 - Encounter for screening for malignant neoplasm of prostate UA CC w/rflx Micro + Cult Today Z00.00 - Encounter for general adult medical examination without abnormal findings TSH reflex Free T4 Today Z00.00 - Encounter for general adult medical examination without abnormal findings Complete Blood Count Auto Diff Today Z00.00 - Encounter for general adult medical examination without abnormal findings Microalbumin, Random (w Creat) Today I10 - Essential (primary) hypertension Referrals Gastroenterology Referral Z12.11 - Encounter for screening for malignant neoplasm of colon
[2025-06-17 16:00] VITALS: BP 127/69; PULSE 85; RESP 12; TEMP 36.6; O2SAT 96; BMI 29.2
== END 2025-06-17 16:39 | disposition home or self-care (01) ==
LOC: HO.HMCFM 15:55
PROVIDERS: PCP Family Medicine; Visit Provider Family Medicine
DX: I10 Essential (primary) hypertension (principal); I25.10 Atherosclerotic heart disease of native coronary artery without angina pectoris; E78.5 Hyperlipidemia, unspecified; R73.03 Prediabetes; Z12.11 Encounter for screening for malignant neoplasm of colon; Z12.5 Encounter for screening for malignant neoplasm of prostate; M79.603 Pain in arm, unspecified; Z00.00 Encounter for general adult medical examination without abnormal findings

== ENCOUNTER → 2025-06-17 15:54 | Outpatient (BNVA) | payer MEDICARE, SELFPAY | PROVIDERS: PCP Family Medicine; Visit Provider Family Medicine | DX: Z00.00 Encounter for general adult medical examination without abnormal findings (principal); I10 Essential (primary) hypertension; I25.10 Atherosclerotic heart disease of native coronary artery without angina pectoris; E78.5 Hyperlipidemia, unspecified; R73.03 Prediabetes; M25.512 Pain in left shoulder; Z13.31 Encounter for screening for depression; Z13.39 Encounter for screening examination for other mental health and behavioral disorders | CPT/HCPCS: 96127; 99212 ==

== ENCOUNTER 2025-08-13 09:28 | Outpatient (REF) | payer MEDICARE, SELFPAY ==
[2025-06-17 16:43] VITALS: BP 116/76; BP 144/80; BP 152/80; BMI 28.5
[2025-08-13 11:31] LABS: MANUAL DIFF FLAG NO
[2025-08-13 11:38] LABS: Hematocrit 43.2 % (42.0-52.0); Hemoglobin 14.1 g/dl (14.0-18.0); Imm Gran Abs Auto 0.02 X10*3/uL (0.00-0.03); Imm Gran Pct Auto 0.4 % (0.0-0.4); Lymphocytes Absolute Auto 1.5 X10*3/uL (1.2-4.9); Mean Corpuscular HGB Conc 32.6 g/dl (31.0-36.0); Mean Corpuscular Hemoglobin 29.3 pg (27.0-33.0); Mean Corpuscular Volume 89.6 fL (80.0-98.0); NRBC Abs Auto 0.000 X10*3/uL (0.0-0.012); NRBC Pct Auto 0.0 /100WBC (0.0-0.2); Platelet Count 204 X10*3/uL (160-400); Red Blood Count 4.82 X10*6/uL (4.60-5.80); White Blood Count 5.4 X10*3/uL (4.8-10.8)
[2025-08-13 12:02] LABS: Alanine Aminotransferase 21 U/L (0-40); Albumin Level 4.3 g/dL (3.5-5.0); Alkaline Phosphatase 47 U/L (39-117); Anion Gap 12 (12-20); Aspartate Amino Transferase 21 U/L (5-37); Blood Urea Nitrogen 11 mg/dL (9-16); Calcium 9.1 mg/dL (8.4-10.2); Carbon Dioxide 26 mmol/L (22-29); Chloride 107 mmol/L (96-108); Cholesterol 173 mg/dL (<200); Estimated Glomerular Filt Rate > 60; HDL Cholesterol 45 mg/dL (>40); Potassium 4.0 mmol/L (3.3-5.1); Sodium 141 mmol/L (135-145); Total Protein 6.7 g/dL (6.5-8.0); Triglycerides 116 mg/dL (<150)
[2025-08-13 14:21] LABS: Appearance Urine Clear; Glucose Urine UA Negative (Negative); PH 6.0 (5.0-9.0); Specific Gravity - Urine 1.025 (1.005-1.025)
[2025-08-13 17:19] LABS: Microalbum/Creatinine Ratio Ur 5.2 ug/mg cr (<30)
== END 2025-08-13 09:29 | disposition home or self-care (01) ==
LOC: HO.WFDLDS 09:28
PROVIDERS: Visit Provider Family Medicine
DX: Z00.00 Encounter for general adult medical examination without abnormal findings (principal); Z12.5 Encounter for screening for malignant neoplasm of prostate; I10 Essential (primary) hypertension; R73.01 Impaired fasting glucose
CPT/HCPCS: 36415; 80053; 80061; 81003; 82043; 82570; 83036; 84153; 84443; 85025

== ENCOUNTER 2025-08-20 09:20 | Outpatient (AMB) | payer MEDICARE, SELFPAY ==
[2025-06-17 16:43] VITALS: BP 116/76; BP 144/80; BP 152/80; BMI 28.5
--- NOTE | 2025-08-20 09:29 | A.OFFPC_ITS ---
Vital Signs 08/20/25 09:35 Height 5 ft 10 in Weight 197 lb 6 oz BMI 28.3 BP 126/78 Blood Pressure Location Rt brachial Position Sitting Respiration 14 Pulse 63 Pulse Source Pulse Oximeter Temp 97.5 F Temp Source Temporal Artery Scan Pulse Oximetry (%) 97 Oxygen Delivery Method Room Air Intake Visit Reasons: f/u HTN, HLD - see comments Intake Note: Terry presents in the office today for a follow up to hypertension and cholesterol. 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 Required: No Allergies No Known Allergies Allergy (Verified 08/20/25 09:33) Medication List - Last Reconciled 08/20/25 by Getachew Vasquez MD aspirin 81 mg PO DAILY cholecalciferol (vitamin D3) 62.5 mcg PO DAILY 90 days coQ10 (ubiquinol) (Qunol Kuldip CoQ10) 100 mg PO BID multivitamin 1 tab PO DAILY pravastatin 10 mg PO BEDTIME 90 days Tobacco use date assessed: 08/20/25 Fall risk assessment: No Falls in past year Last assessed Fall Risk: 08/20/25 Dental Screening Dental Screen Date: 08/20/25 Did you have a dental visit in the last 12 months?: Yes Did you have a dental problem in the last 6 months where you did not have access to dental care?: No Was dental information given to patient?: Patient has dentist HPI f/u HTN, HLD - see comments HPI Details 75 y/o male presents to f/u HTN, HLD. Blood pressure today 126/78, 63p. Labs drawn 08/13/25. Reviewed labs with pt. A1c 5.5%. Triglycerides 116. TC 173. LDL 105. HDL 45. PSA 0.22. Zetia, losartan seems to be discontinued. PFSH Medical History (Updated 08/20/25 @ 10:14 by Connor Zuñiga) Hernia Back pain Arthritis High blood pressure Arterial stent thrombosis Surgical History H/O right wrist surgery History of hip surgery Family History Mother High cholesterol Skin cancer Father Asthma Leukemia Alcoholism Social History (Updated 08/20/25 @ 09:35 by Nidia Buckner CMA) Housing: Apartment Alcohol intake: current Patient Tobacco Use Status: Never used Tobacco e-Cigarette/Vaping Use: Never Used Second Hand Smoke Exposure: No service: No Current occupational status: retired Cognitive needs: No Hearing needs: Yes Vision needs: Yes (Patient wears glasses.) Questionnaire PHQ-9 Over the last 2 weeks, how often have you been bothered by any of the following problems? 1. Little interest or pleasure in doing things: not at all 2. Feeling down, depressed, or hopeless: not at all 3. Trouble falling or staying asleep, or sleeping too much: several days 4. Feeling tired or having little energy: several days 5. Poor appetite or overeating: not at all 6. Feeling bad about yourself - or that you are a failure or have let yourself or your family down: not at all 7. Trouble concentrating on things, such as reading the newspaper or watching television: not at all 8. Moving or speaking so slowly that other people could have noticed. Or the opposite - being so fidgety or restless that you have been moving around a lot more than usual: not at all 9. Thoughts that you would be better off or of hurting yourself in some way: not at all Total score: 2 Depression Screening Interpretation: Negative Depression Screening Done: Yes 12333 - PHQ-9 Billing: Yes Source: Developed by Drs. Leland Motta, Daisy Valencia, All Turpin and colleagues, with an educational lilliam from [employer]. Thrive Questionnaire Date Thrive assessed: 06/17/25 I am a: Patient What is your living situation today?: I have a steady place to live Within the past 12 months, did the food you bought not last and you didn't have the money to get more?: Never true Within the past 12 months, did you worry whether your food would run out before you got money to buy more?: Never true Do you have trouble paying for medicines?: No Do you have trouble getting transportation to medical appointments?: No Do you have trouble paying your heating and electricity bill?: No Do you have trouble taking care of your child, family member or friend?: No Do you have trouble with day-to-day activities such as bathing, preparing meals, shopping, managing finances, etc.?: No Are you currently unemployed and looking for a job?: No Are you interested in more education?: No Please select the resources that you would like help with: None Currently or been in a relationship where the following occur: I choose not to answer THRIVE Score: 0 CHARIS-7 AMB Questionnaire CHARIS-7 Date CHARIS - 7 assessed: 08/20/25 Feeling nervous, anxious, or on edge: 0 = Not at all Not being able to stop or control worryin = Not at all Worrying too much about different things: 0 = Not at all Trouble relaxin = Not at all Being so restless that it is hard to sit still: 0 = Not at all Becoming easily annoyed or irritable: 0 = Not at all Feeling afraid as if something awful might happen: 0 = Not at all Total CHARIS-7 score (0-4 normal; 5-9 mild; 10-14 moderate; 15-21 severe): 0 Source: Developed by Drs. Leland Motta, Daisy Valencia, All Turpin and colleagues, with an educational lilliam from [employer]. CHARIS-7 Assessment Billing CHARIS-7 Assessment Tool: CHARIS-7 Assessment 07318 Review of Systems Const Denies chills, Denies fatigue, Denies fever(s), Denies headache(s) and Denies weakness ENT Denies dizziness and Denies headache(s) Card Denies dyspnea Resp Denies cough, Denies dyspnea, Denies wheezing and Denies other (shortness of breath) Musc Denies numbness and Denies tingling Neuro Denies dizziness, Denies headache(s), Denies numbness, Denies tingling and Denies weakness Psych Denies anxiety and Denies depression Endo Denies fatigue Aller/Immun Denies wheezing Physical exam (Primary Care) Vital Signs: Last Vital Signs Temp 97.5 F 08/20/25 09:35 Pulse 63 08/20/25 09:35 Resp 14 08/20/25 09:35 BP 126/78 08/20/25 09:35 Pulse Ox 97 08/20/25 09:35 Oxygen Delivery Method Room Air 08/20/25 09:35 BMI result Body Mass Index 28.3 Tobacco/Smoking Status: Tobacco use Status Tobacco use date assessed 08/20/25 08/20/25 09:38 Patient Tobacco Use Status Never used Tobacco 08/20/25 09:35 e-Cigarette/Vaping Use Never Used 08/20/25 09:35 PHQ-9: PHQ-9 Score PHQ-9: Total score 2 08/20/25 10:25 Depression Screening Interpretation: Negative Thrive Assessment: Date of Thrive Assessment Date Thrive assessed 06/17/25 08/20/25 09:29 Currently or been in a relationship where the following occur: I choose not to answer Const General: well developed; No acute distress Nutritional Appearance: well nourished Orientation/consciousness: patient oriented x3 HENMT Head: Yes normocephalic and Yes atraumatic Eyes General: appearance normal, both eyes and all related structures Pupils: Equal, round and reactive pupils present EOM: EOMs intact bilaterally Resp Effort & Inspection: normal respiratory effort Neuro General: patient oriented x3 and gait normal Cranial nerves: Yes Equal, round and reactive pupils present Psych Affect: normal affect Coding Level of Care Code Est Pt Level 5 (31735) Diagnoses High blood pressure I10 Coronary artery disease I25.10 Hyperlipidemia E78.5 Pre-diabetes R73.03 Screening for prostate cancer Z12.5 Shoulder pain M25.519 Additional Codes CHARIS-7 Assessment Billing - CHARIS-7 Assessment Tool: CHARIS-7 Assessment 77308 ([id number]) PHQ-9 - 82269 - PHQ-9 Billing: Yes ([id number]) Assessment & Plan Assessment & Plan (1) High blood pressure: Code(s): I10 - Essential (primary) hypertension Category: Medical Plan: Blood pressure remains controlled off of losartan. Goal is less than 130/80 He is working on weight loss Continue lifestyle changes (2) Coronary artery disease: Code(s): I25.10 - Atherosclerotic heart disease of [place] coronary artery without angina pectoris Category: Medical Plan: Stable (3) Hyperlipidemia: Code(s): E78.5 - Hyperlipidemia, unspecified Category: Medical Plan: LDL cholesterol is still too high. Goal is less than 70 Patient is taking pravastatin. He is not sure he tolerated Zetia. We could consider this again if he is unable to get to goal. He is working on lifestyle changes including weight loss Continue weight loss and I encouraged a diet lower in saturated fats and cholesterol (4) Pre-diabetes: Code(s): R73.03 - Prediabetes Category: Medical Plan: As above patient is losing weight A1c now 5.5% which is top normal range and improved from prior measurements Will continue to monitor Continue diet low in sugars and starches (5) Screening for prostate cancer: Code(s): Z12.5 - Encounter for screening for malignant neoplasm of prostate Category: Medical Plan: PSA is within normal range Will continue annual screening (6) Shoulder pain: Code(s): M25.519 - Pain in unspecified shoulder Category: Medical Plan: Left shoulder pain and some decreased range of motion and weakness Patient notes that this has been longstanding and he recently moved his arm while working underneath a car and felt increased pain with near dislocation but subsequently range of motion has improved greatly. Continue working on gentle exercise for strengthening and jziek-[id number]-[id number] exercises. Plan He will return in about 3 months to follow-up hypertension, now diet-controlled, pre diabetes and hyperlipidemia. LDL cholesterol is still too high and he is actively working on lifestyle changes including weight loss. Goal is less than 70 and he is taking pravastatin as prescribed. Had also prescribed Zetia. It is unclear if he did not tolerate this or not we can consider this again if needed.
[2025-08-20 09:35] VITALS: BP 126/78; PULSE 63; RESP 14; TEMP 36.4; O2SAT 97; BMI 28.3
== END 2025-08-20 10:21 | disposition home or self-care (01) ==
LOC: HO.HMCFM 09:21
PROVIDERS: PCP Family Medicine; Visit Provider Family Medicine
DX: I10 Essential (primary) hypertension (principal); I25.10 Atherosclerotic heart disease of native coronary artery without angina pectoris; E78.5 Hyperlipidemia, unspecified; R73.03 Prediabetes; M25.519 Pain in unspecified shoulder; Z12.5 Encounter for screening for malignant neoplasm of prostate

== ENCOUNTER → 2025-08-20 09:20 | Outpatient (BNVA) | payer MEDICARE, SELFPAY ==
[2025-06-17 16:43] VITALS: BP 116/76; BP 144/80; BP 152/80; BMI 28.5
== END ==
PROVIDERS: PCP Family Medicine; Visit Provider Family Medicine
DX: Z12.5 Encounter for screening for malignant neoplasm of prostate (principal); I25.10 Atherosclerotic heart disease of native coronary artery without angina pectoris; I10 Essential (primary) hypertension; E78.5 Hyperlipidemia, unspecified; R73.03 Prediabetes; M25.519 Pain in unspecified shoulder
CPT/HCPCS: 96127; 99212